=== PATIENT | male | born 1960 | race American Indian/Alaskan Native ===

== ENCOUNTER 2018-06-17 11:33 | Inpatient (IN) | payer MEDICAID ==
--- NOTE | 2018-06-17 12:30 | ED PDOC ---
HPI: Trauma/Fall - HPI Time Seen by Provider: 06/17/18 11:37 Chief Complaint (Nursing): Trauma Chief Complaint (Provider): Trauma History Per: Patient, Other ([facility]) History/Exam Limitations: no limitations Additional Complaint(s): 57 years old male transferred from [facility] for surgery with Dr. Moy. Patient had right hip prosthesis placed by Dr. Moy 1 month ago. Patient fell out of bed today with dislocation and wound dehiscence. He was ini tiarenardy worked up by MD Sukhdev Ba and ALEKSANDRA Chowdhury at [facility] and Dr. Moy preferred to have patient transferred here for the operation. Patient is now in the ER, wound covered with bandage to control bleeding. He rates pain as 7 out of 10. PMD: Rafael Patel Past Medical History Reviewed: Historical Data, Nursing Documentation, Vital Signs Vital Signs: Last Vital Signs Temp 97.8 F 06/17/18 11:42 Pulse 84 06/17/18 11:42 Resp 18 06/17/18 11:42 BP 135/87 06/17/18 12:21 Pulse Ox 97 06/17/18 11:42 Primary Care Provider: Tuan Moy III - Medical History PMH: HTN, Hypercholesterolemia - Surgical History Other surgeries: Right hip prosthesis - Family History Family History: States: Unknown Family Hx - Immunization History Hx Tetanus Toxoid Vaccination: No Hx Influenza Vaccination: No Hx Pneumococcal Vaccination: No - Home Medications Home Medications: Ambulatory Orders Medication Instructions Recorded Aspirin [Aspirin EC] 325 mg PO DAILY 05/09/18 Cyclobenzaprine [Flexeril] 10 mg PO DAILY 05/09/18 Metoprolol Tartrate [Lopressor] 50 mg PO Q12 05/09/18 Pantoprazole Sodium [Protonix] 40 mg PO DAILY 05/09/18 amLODIPine [Norvasc] 10 mg PO DAILY 05/09/18 hydroCHLOROthiazide [Hydrodiuril] 25 mg PO DAILY 05/09/18 Ergocalciferol [Drisdol 50,000 1 cap PO Q7D cap 05/18/18 Intl Units Cap] Ferrous Sulfate [Feosol] 325 mg PO BID tab 05/18/18 Folic Acid 1 mg PO DAILY tab 05/18/18 Rosuvastatin Calcium [Crestor] 10 mg PO HS tab 05/18/18 SITagliptin [Januvia] 100 mg PO DAILY tab 05/18/18 metFORMIN [glucOPHAGE] 850 mg PO BIDCC tab 05/18/18 Acetaminophen/Oxycodone Hydr 1 tab PO Q6 PRN 06/17/18 [Percocet 10/325 mg Tab] Alprazolam [Xanax] 2 mg PO Q8 PRN 06/17/18 - Allergies Allergies/Adverse Reactions: Allergies Allergy/AdvReac Type Severity Reaction Status Date / Time tomato AdvReac ITCHING Verified 05/14/18 14:08 Review of Systems ROS Statement: Except As Marked, All Systems Reviewed And Found Negative Musculoskeletal: Positive for: Leg Pain (Right hip injnury and pain) Physical Exam - Reviewed Nursing Documentation Reviewed: Yes Vital Signs Reviewed: Yes - Physical Exam Appears: Positive for: No Acute Distress Head Exam: Positive for: ATRAUMATIC, NORMOCEPHALIC Extremity: Positive for: Tenderness (to palpation to right hip), Other (Dressing covering right hip, no leaking) - Laboratory Results Result Diagrams: 06/19/18 05:10 06/19/18 05:10 - ECG O2 Sat by Pulse Oximetry: 97 (RA) Pulse Ox Interpretation: Normal Medical Decision Making Medical Decision Making: Time: 1200 MDM: Dr. Moy has been contacted. --Patient to be admitted under Dr. Larose service, who is covering for Dr. Patel. --Will Contact Dr. Larose for admission. Scribe Attestation: Documented by Marjan Rasmussen, acting as a scribe for Randi Malik MD. Provider Scribe Attestation: All medical record entries made by the Scribe were at my direction and personally dictated by me. I have reviewed the chart and agree that the record accurately reflects my personal performance of the history, physical exam, medical decision making, and the department course for this patient. I have also personally directed, reviewed, and agree with the discharge instructions and disposition. Disposition - Clinical Impression Clinical Impression: Dislocation of hip prosthesis - Disposition Disposition Time: 12:00 Condition: GUARDED
[2018-06-17] MEDS ORDERED: Morphine 4 MG/ML VIAL IVP STA (12:41)
[2018-06-17] MEDS ORDERED: Oxycodone/Acetaminophen 5/325 mg Tab PO PRN (13:00)
[2018-06-17] MEDS ORDERED: Glucagon Recombinant 1 mg Inj IM PRN (13:10)
[2018-06-17] MEDS ORDERED: Dextrose 50% SYRINGE Inj (50 ml) IV PRN (13:10)
[2018-06-17] MEDS ORDERED: Morphine 4 MG/ML VIAL ONE (13:12)
[2018-06-17] MEDS ORDERED: Ergocalciferol 50,000 Intl Units Cap PO SCH (13:15)
[2018-06-17 13:36] LABS: BASO # 0.1 K/uL (0.0-0.2); EOS # 0.2 K/uL (0.0-0.7); EOS % 3.8 % (0.0-4.0); HEMOGLOBIN 7.3 g/dL (12.0-18.0); LYMPH # 1.8 K/uL (1.0-4.3); MEAN CELL VOLUME 79.1 fl (80.0-94.0); MEAN CORPUSCULAR HEMOGLOBIN 25.6 pg (27.0-31.0); MEAN CORPUSCULAR HGB CONC 32.4 g/dL (33.0-37.0); MEAN PLATELET VOLUME 8.1 fl (7.2-11.7); MONO # 0.5 K/uL (0.0-0.8); NEUT # 3.2 K/uL (1.8-7.0); NEUT % 55.2 % (50.0-75.0); RBC 2.87 Mil/uL (4.40-5.90); WHITE BLOOD COUNT 5.8 K/uL (4.8-10.8)
[2018-06-17 13:44] LABS: INR 1.2; PROTHROMBIN TIME 13.1 Seconds (9.8-13.1)
[2018-06-17 13:47] LABS: PARTIAL THROMBOPLASTIN TIME 27.7 Seconds (25.6-37.1)
[2018-06-17 13:50] LABS: ALB/GLOB RATIO 0.9 (1.0-2.1); ALBUMIN 3.1 g/dL (3.5-5.0); ALT/SGPT 23 U/L (21-72); AST/SGOT 33 U/L (17-59); BLOOD UREA NITROGEN 11 mg/dl (9-20); CALCIUM 7.9 mg/dL (8.4-10.2); GFR NON-AFRICAN AMERICAN > 60
[2018-06-17 14:01] LABS: BARBITURATES, UR NEGATIVE (NEGATIVE); BENZODIAZEPINES, UR POSITIVE (NEGATIVE); OPIATES, UR POSITIVE (NEGATIVE); PHENCYCLIDINE, UR NEGATIVE (NEGATIVE)
--- NOTE | 2018-06-17 14:34 | RAD ---
Date of service: 06/17/2018 PROCEDURE: HISTORY: hip dislocation COMPARISON: None TECHNIQUE: AP pelvis and frog's leg view. FINDINGS: Bilateral hip replacements present. The right femoral prostatic component is dislocated superiorly out of the right acetabular component. The right acetabular component appears maintained in the acetabular fossa-there is some mild radiolucency of it and the [place] right acetabular bony anatomy and some diffuse sclerosis and hyperostoses primarily around the superolateral right acetabulum. The 3 screws in the acetabular fossa appear intact. Per the cross-table lateral view of the right hip the right femoral head prostatic component is superiorly dislocated to the right acetabular component. The femoral head static component lines up with the anterior 1/2 of the right acetabular prosthetic component. The right femoral stem is anterior to the acetabular component on these images. IMPRESSION: Six superior dislocation of the right femoral head prostatic component relative to the right acetabular prosthetic component in this patient with a right total hip replacement. Findings are as above. On series 11349, image 2 the most inferior of the right acetabular prostatic component opponents screws appears discontinuous with the right acetabular prosthetic cup.. The trace lucency thin along the right acetabular prosthetic component and the [place] osseous right acetabular fossa may reflect some mild loosening. No comparison available. Associated reactive a prominent sclerotic osseous changes as above no comparison is available. The left femoral head appears grossly maintained in the left acetabular prosthetic component this patient is also status post left total hip replacement. Comments: Study marked for PA review .
--- NOTE | 2018-06-17 14:37 | RAD ---
Date of service: 06/17/2018 PROCEDURE: HISTORY: hip dislocation COMPARISON: None TECHNIQUE: Three views FINDINGS: The right femoral head prosthetic component this patient with a total right hip prosthesis is superiorly displaced and also projects along the anterior 1/2 level (however cephalad to it) of the right acetabular prosthetic component. The right acetabular prosthetic component is in the right acetabular [place] fossa-there is some lucency around it which may reflect some loosening. No comparisons available is also some acetabular sclerosis. At 1 of the 3 right acetabular screws appears discontinuous on the right hip x-ray views that accompany the study is well compatible with its fracture-its chronicity is unknown. The distal right femoral stem appears well seated in the intramedullary cavity. Osteoarthrosis and degenerative changes are noted in the right knee. Subcutaneous reticulated edema present. IMPRESSION: Superior right hip dislocation of the right femoral head prostatic component from the right acetabular components patient with a total right hip prosthesis. Other findings as above. Probable trace flake faint ossific fracture fragments along the lesser trochanter. Other findings as above.
--- NOTE | 2018-06-17 14:41 | RAD ---
Date of service: 06/17/2018 PROCEDURE: CHEST RADIOGRAPH, 1 VIEW HISTORY: pre op COMPARISON: None available. FINDINGS: LUNGS: Clear. PLEURA: No pneumothorax or pleural fluid seen. CARDIOVASCULAR: Atherosclerotic calcifications identified primarily aortic arch. No radiographic findings to suggest acute or significant cardiovascular disease. OSSEOUS STRUCTURES: No significant abnormalities. VISUALIZED UPPER ABDOMEN: Normal. OTHER FINDINGS: None. IMPRESSION: No active disease.
--- NOTE | 2018-06-17 16:00 | CP.PCM.CON ---
History of Present Illness - History of Present Illness History of Present Illness: Orthopedic consult: Dr. Moy Patient is a 57 y/o male well known to Dr. Moy's practice, who presents to the [facility] ER with c/o severe R hip pain. Patient had a R revision YO due to fractured hip prosthesis performed at [facility] on 05/14/18. [facility]. Yesterday, he presented to Dr. Moy for staple removal without any issues. This morning he reports falling out of his bed onto his right hip, experiencing severe pain and bleeding from the incision site. He was taken to [facility] for emergent evaluation and was transferred to [facility] to be treated by Dr. Moy. The pain is controlled and he denies any radiation of pain/numbness/tingling. He currently denies CP/SOB/N/V/D/fever/dysuria/melena. PMH: HTN, DMII PSH: bilateral YO, R revision YO meds: as per med rec allergy: tomato SH: 1 ppd tobacco, denies ETOH, urine tox + for opiates and benzo Review of Systems - Review of Systems All systems: reviewed and no additional remarkable complaints except Review of Systems: as per HPI Past Patient History - Infectious Disease Hx of Infectious Diseases: None - Past Medical History & Family History Past Medical History?: Yes Past Family History: Reviewed and not pertinent - Past Social History Smoking Status: Heavy Smoker > 10 Cigarettes Daily - CARDIAC Hx Hypercholesterolemia: Yes Hx Hypertension: Yes - ENDOCRINE/METABOLIC Other/Comment: Borderline Diabetes - MUSCULOSKELETAL/RHEUMATOLOGICAL Hx Falls: Yes Other/Comment: Erlin. Foot/Toes Bunions - PSYCHIATRIC Hx Substance Use: No - SURGICAL HISTORY Hx Surgeries: Yes Hx Orthopedic Surgery: Yes (bilateral hip surgery) Other/Comment: Right hip surgery 04/23/2018 - ANESTHESIA Hx Anesthesia: Yes Hx Anesthesia Reactions: No Hx Malignant Hyperthermia: No Meds Allergies/Adverse Reactions: Allergies Allergy/AdvReac Type Severity Reaction Status Date / Time tomato AdvReac ITCHING Verified 05/14/18 14:08 - Medications Medications: Current Medications Amlodipine Besylate (Norvasc) 10 mg PO DAILY AYAD Atorvastatin Calcium (Lipitor) 20 mg PO HS AYAD Dextrose (Dextrose 50% Inj) 0 ml IV STAT PRN; Protocol PRN Reason: Hypoglycemia Protocol Dextrose (Glutose 15) 0 gm PO ONCE PRN; Protocol PRN Reason: Hypoglycemia Protocol Docusate Sodium (Colace) 100 mg PO BID AYAD Ergocalciferol (Drisdol 50,000 Intl Units Cap) 1 cap PO Q7D AYAD Ferrous Sulfate (Feosol) 325 mg PO BID AYAD Folic Acid (Folic Acid) 1 mg PO DAILY AYAD Glucagon (Glucagen Diagnostic Kit) 0 mg IM STAT PRN; Protocol PRN Reason: Hypoglycemia Protocol Hydrochlorothiazide (Hydrodiuril) 25 mg PO DAILY AYAD Hydromorphone HCl (Dilaudid) 0.5 mg IVP Q4 PRN PRN Reason: Pain, severe (8-10) Sodium Chloride (Sodium Chloride 0.9%) 1,000 mls @ 100 mls/hr IV .Q10H AYAD Metformin HCl (Glucophage) 850 mg PO BID AYAD Metoprolol Tartrate (Lopressor) 50 mg PO Q12 AYAD Oxycodone/Acetaminophen (Percocet 5/325 Mg Tab) 1 tab PO Q4H PRN PRN Reason: Pain, moderate (4-7) Stop: 06/20/18 13:01 Pantoprazole Sodium (Protonix Ec Tab) 40 mg PO DAILY AYAD Sitagliptin Phosphate (Januvia) 100 mg PO DAILY AYAD Physical Exam - Constitutional Appears: Well, No Acute Distress - Head Exam Head Exam: ATRAUMATIC, NORMOCEPHALIC - Eye Exam Eye Exam: EOMI, Normal appearance - ENT Exam ENT Exam: Mucous Membranes Moist - Respiratory Exam Respiratory Exam: NORMAL BREATHING PATTERN - Extremities Exam Additional comments: RLE: moderate thigh swelling no erythema mid lateral thigh incision with dehiscence at mid wound with exposed muscle diffuse lateral and groin tenderness sensation intact SP/DP/TN motor intact EHL/FHL/TA/G pedal pulse intact calves soft NT b/l - Neurological Exam Neurological exam: Alert, Oriented x3 - Psychiatric Exam Psychiatric exam: Normal Affect, Normal Mood - Skin Skin Exam: Normal Color, Warm Results - Vital Signs Recent Vital Signs: Last Vital Signs Temp 97.8 F 06/17/18 11:42 Pulse 84 06/17/18 11:42 Resp 18 06/17/18 11:42 BP 135/87 06/17/18 12:21 Pulse Ox 97 06/17/18 12:46 - Labs Result Diagrams: 06/17/18 13:20 06/17/18 13:20 Labs: Laboratory Results - last 24 hr 06/17/18 06/17/18 06/17/18 13:20 13:20 13:20 WBC 5.8 RBC 2.87 L Hgb 7.3 L Hct 22.7 L MCV 79.1 L MCH 25.6 L MCHC 32.4 L RDW 15.0 H Plt Count 196 MPV 8.1 Neut % (Auto) 55.2 Lymph % (Auto) 31.0 [place] % (Auto) 9.0 Eos % (Auto) 3.8 Baso % (Auto) 1.0 Neut # (Auto) 3.2 Lymph # (Auto) 1.8 [place] # (Auto) 0.5 Eos # (Auto) 0.2 Baso # (Auto) 0.1 PT 13.1 INR 1.2 APTT 27.7 Sodium 137 Potassium 3.7 Chloride 100 Carbon Dioxide 31 H Anion Gap 10 BUN 11 Creatinine 0.6 L Est GFR ( Amer) > 60 Est GFR (Non-Af Amer) > 60 Random Glucose 114 H Calcium 7.9 L Total Bilirubin 0.3 AST 33 ALT 23 Alkaline Phosphatase 73 Total Protein 6.4 Albumin 3.1 L Globulin 3.3 Albumin/Globulin Ratio 0.9 L Urine Opiates Screen Urine Methadone Screen Ur Barbiturates Screen Ur Phencyclidine Scrn Ur Amphetamines Screen U Benzodiazepines Scrn U Oth Cocaine Metabols U Cannabinoids Screen 06/17/18 13:20 WBC RBC Hgb Hct MCV MCH MCHC RDW Plt Count MPV Neut % (Auto) Lymph % (Auto) [place] % (Auto) Eos % (Auto) Baso % (Auto) Neut # (Auto) Lymph # (Auto) [place] # (Auto) Eos # (Auto) Baso # (Auto) PT INR APTT Sodium Potassium Chloride Carbon Dioxide Anion Gap BUN Creatinine Est GFR ( Amer) Est GFR (Non-Af Amer) Random Glucose Calcium Total Bilirubin AST ALT Alkaline Phosphatase Total Protein Albumin Globulin Albumin/Globulin Ratio Urine Opiates Screen Positive H Urine Methadone Screen Negative Ur Barbiturates Screen Negative Ur Phencyclidine Scrn Negative Ur Amphetamines Screen Negative U Benzodiazepines Scrn Positive U Oth Cocaine Metabols Negative U Cannabinoids Screen Negative - Impressions Impression: Accession No. : [id number] Patient Name / ID : FLORENCE ORTEGA / [id number] Exam Date : 06/17/2018 13:12:26 ( Approved ) Study Comment : Sex / Age : M / Creator : Ann Marie Bunn Dictator : Ann Marie Bunn Bumper Operator : Phone Manager : Ann Marie Bunn Approver2 : Report Date : 06/17/2018 14:34:08 My Comment : Date of service: 06/17/2018 PROCEDURE: HISTORY: hip dislocation COMPARISON: None TECHNIQUE: Three views FINDINGS: The right femoral head prosthetic component this patient with a total right hip prosthesis is superiorly displaced and also projects along the anterior 1/2 level (however cephalad to it) of the right acetabular prosthetic component. The right acetabular prosthetic component is in the right acetabular [place] fossa-there is some lucency around it which may reflect some loosening. No comparisons available is also some acetabular sclerosis. At 1 of the 3 right a cetabular screws appears discontinuous on the right hip x-ray views that accompany the study is well compatible with its fracture-its chronicity is unknown. The distal right femoral stem appears well seated in the intramedullary cavity. Osteoarthrosis and degenerative changes are noted in the right knee. Subcutaneous reticulated edema present. IMPRESSION: Superior right hip dislocation of the right femoral head prostatic component from the right acetabular components patient with a total right hip prosthesis. Other findings as above. Probable trace flake faint ossific fracture fragments along the lesser trochanter. Other findings as above. Accession No. : [id number] Patient Name / ID : FLORENCE ORTEGA / [id number] Exam Date : 06/17/2018 13:12:26 ( Approved ) Study Comment : Sex / Age : M / Creator : Ann Marie Bunn Dictator : Ann Marie Bunn Bumper Operator : Phone Manager : Ann Marie Bunn Approver2 : Report Date : 06/17/2018 14:30:37 My Comment : Date of service: 06/17/2018 PROCEDURE: HISTORY: hip dislocation COMPARISON: None TECHNIQUE: AP pelvis and frog's leg view. FINDINGS: Bilateral hip replacements present. The right femoral prostatic component is dislocated superiorly out of the right acetabular component. The right acetabular component appears maintained in the acetabular fossa-there is some mild radiolucency of it and the lum[place] right acetabular bony anatomy and some diffuse sclerosis and hyperostoses primarily around the superolateral right acetabulum. The 3 screws in the acetabular fossa appear intact. Per the cross-table lateral view of the right hip the right femoral head prostatic component is superiorly dislocated to the right acetabular component. The femoral head static component lines up with the anterior 1/2 of the right acetabular prosthetic component. The right femoral stem is anterior to the a cetabular component on these images. IMPRESSION: Six superior dislocation of the right femoral head prostatic component relative to the right acetabular prosthetic component in this patient with a right total hip replacement. Findings are as above. On series 60867, image 2 the most inferior of the right acetabular prostatic component opponents screws appears discontinuous with the right acetabular prosthetic cup.. The trace lucency thin along the right acetabular prosthetic component and the lum[place] osseous right acetabular fossa may reflect some mild loosening. No comparison available. Associated reactive a prominent sclerotic osseous changes as above no comparison is available. The left femoral head appears grossly maintained in the left acetabular prosthetic component this patient is also status post left total hip replacement. Comments: Study marked for PA review . Assessment & Plan (1) Dislocation of hip prosthesis Assessment and Plan: -Dr. Moy has seen, examined the patient and reviewed his imaging. The plan is to perform a revision R YO tomorrow AM. -Transfuse 3 units PRBC's due to severe anemia -NPO pMN -Dressings applied -bedrest, NWB RLE -pain control -d/w Dr. Moy who agrees with above Status: Acute - Date & Time Date: 06/17/18 Time: 14:00
--- NOTE | 2018-06-17 18:42 | US ---
Date of service: 06/17/2018 PROCEDURE: Bilateral lower extremity venous duplex Doppler. HISTORY: leg swelling s/p hip transplant/dislocation COMPARISON: None available. TECHNIQUE: Bilateral common femoral, superficial femoral, popliteal and posterior tibial veins were evaluated. Flow was assessed with color Doppler, compressibility, assessment of phasic flow and augmentation response. FINDINGS: COMMON FEMORAL VEIN: Right CFV: Unremarkable. Left CFV: Unremarkable. SUPERFICIAL FEMORAL VEIN: Right SFV: Unremarkable. Left SFV: Unremarkable. POPLITEAL VEIN: Right Popliteal: Unremarkable. Left Popliteal: Unremarkable. POSTERIOR TIBIAL VEIN: Right PTV: Unremarkable. Left PTV: Unremarkable. OTHER FINDINGS: Morphologically, unremarkable lymph node(s) right inguinal region. IMPRESSION: No evidence of deep venous thrombosis.
[2018-06-17] MEDS ORDERED: Insulin Detemir 100 Units/ml Inj SC SCH (22:00)
[2018-06-17] MEDS: Sodium Chloride 0.9% 1,000 ML IV SCH (22:17)
[2018-06-17] MEDS: Insulin Regular 100 units/ml SC SCH (22:51)
--- NOTE | 2018-06-18 03:13 | HP ---
HISTORY OF PRESENT ILLNESS: This is a 57-year-old male with history of multiple medical problems who recently had revision of right hip prosthesis [address] Moy. The patient was discharged from rehabilitation about 1 week prior to this admission. 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 The patient was brought to emergency room and evaluated, and the femur x-ray was done and it showed superior right hip dislocation of the right femoral head prosthetic component from the right acetabular components. Probable trace ossific fracture fragments along the lesser trochanter. Orthopedic consult was called, and the patient was admitted for further management. Other review of system is negative. ALLERGIES: POSITIVE FOR TOMATO. MEDICATIONS: Reviewed as per MAR and ordered. SOCIAL HISTORY: Patient is a smoker for more than 40 years. Denied EtOH, or substance abuse. FAMILY HISTORY: Noncontributory. PAST MEDICAL HISTORY: Type 2 diabetes mellitus, hypertension. FAMILY HISTORY: Noncontributory. PHYSICAL EXAMINATION: GENERAL: The patient is in bed, not in any cardiopulmonary distress at the time of this examination. VITAL SIGNS: Blood pressure 146/70, temperature 98.5, respiratory rate 17, and pulse 75. HEENT: Pupils equal and reactive to light. Normal-appearing mucosa of the conjunctivae, oropharynx, and nasal membrane mucosa. NECK: Supple. No JVD. No carotid bruit. No lymph node. No thyromegaly. CHEST AND LUNGS: Bilateral symmetrical expansion. Good air exchange. No rales, no rhonchi. CARDIOVASCULAR SYSTEM: PMI not localized. S1, S2. No additional sounds. ABDOMEN: Normoactive bowel sounds. No tenderness, no organomegaly. No masses. EXTREMITIES: No cyanosis, no clubbing. There is edema of the right lower extremity compared to the left. CENTRAL NERVOUS SYSTEM: Alert, awake, oriented x2; and no neurological deficit could be appreciated. ASSESSMENT: 1. Fall with dislocation of the right hip prosthesis, and dehiscence of the wound. 2. Anemia, multifactorial. 3. Hypertension. 4. Type 2 diabetes mellitus. PLAN: We will do venous Doppler of both lower extremities. We have also ordered to transfuse the patient 2 units of packed RBCs and resume the patient's medications. Accu-Cheks with insulin coverage. The patient has a moderate risk to high risk for any surgical procedure given his extensive history of smoking with underlying hypertension, diabetes, and morbid obesity. Surgery is needed as the patient cannot walk. Discussed with Dr. Moy. [facility] MD Thuan
[2018-06-18 05:05] LABS: SQUAMOUS EPITHIAL < 1 /hpf (0-5); URINE BILIRUBIN NEGATIVE (NEGATIVE); URINE BLOOD NEGATIVE (NEGATIVE); URINE CLARITY SLIGHTY-CLOUDY (Clear); URINE COLOR YELLOW (YELLOW); URINE GLUCOSE (UA) NEG (NEGATIVE); URINE LEUKOCYTE ESTERASE NEG Leu/uL (Negative); URINE PROTEIN 30 mg/dL (NEGATIVE); URINE UROBILINOGEN 0.2-1.0 mg/dL (0.2-1.0)
[2018-06-18] MEDS: Insulin Regular 100 units/ml SC SCH ×2 (06:56→21:20)
[2018-06-18] MEDS ORDERED: EPINEPHrine 1 mg/ml (1:1000) Inj ONE ×2 (07:14→07:18)
[2018-06-18] MEDS ORDERED: Bacitracin Ointment 30 GM TUBE ONE (07:14)
[2018-06-18] MEDS ORDERED: Absorbable Gelatin Sponge Size 12-7 ONE (07:14)
[2018-06-18] MEDS ORDERED: Thrombin Topical 5,000 Int Units Spray Kit ONE (07:15)
[2018-06-18] MEDS ORDERED: Succinylcholine Chloride 20 mg/ml Syr (5 ml) IV ONE (07:34)
[2018-06-18] MEDS ORDERED: Rocuronium 10 mg/ml (5 ml) ONE ×4 (07:34→10:36)
[2018-06-18] MEDS ORDERED: Propofol 10 mg/ml Inj (20 ML) ONE (07:34)
[2018-06-18] MEDS ORDERED: Phenylephrine 10 mg/ml Inj ONE (07:36)
[2018-06-18] MEDS ORDERED: Morphine 5 mg/10 ml preservative-free Inj(Duramorph) ONE (07:41)
[2018-06-18 08:15] LABS: BASO % 0.2 % (0.0-2.0); EOS # 0.2 K/uL (0.0-0.7); EOS % 2.5 % (0.0-4.0); LYMPH # 1.6 K/uL (1.0-4.3); LYMPH % 21.1 % (20.0-40.0); MEAN CELL VOLUME 81.1 fl (80.0-94.0); MEAN CORPUSCULAR HEMOGLOBIN 26.8 pg (27.0-31.0); MEAN CORPUSCULAR HGB CONC 33.1 g/dL (33.0-37.0); MEAN PLATELET VOLUME 7.9 fl (7.2-11.7); MONO # 0.6 K/uL (0.0-0.8); MONO % 8.1 % (0.0-10.0); NEUT # 5.1 K/uL (1.8-7.0); NEUT % 68.1 % (50.0-75.0); NRBC % 0.1 % (0.0-0.0); RBC 4.01 Mil/uL (4.40-5.90); WHITE BLOOD COUNT 7.5 K/uL (4.8-10.8)
[2018-06-18 08:18] LABS: HEMOGLOBIN 10.8 g/dL (12.0-18.0)
[2018-06-18] MEDS ORDERED: Sodium Chloride 0.9% 1,000 ML IV ONE ×2 (08:19)
[2018-06-18] MEDS ORDERED: Midazolam 2 MG/2 ML VIAL ONE (08:21)
[2018-06-18] MEDS ORDERED: Lactated Ringer's 1,000 ML IV ONE ×4 (08:30→13:00)
[2018-06-18] MEDS ORDERED: EPINEPHrine 1 mg/ml (1:1000) Inj IV ONE (08:30)
[2018-06-18] MEDS ORDERED: Dexamethasone 4 mg/1 ml ONE (09:41)
[2018-06-18] MEDS ORDERED: Sodium Chloride 0.9% 250 ML IV ONE (11:30)
--- NOTE | 2018-06-18 11:30 | CARD ---
APPROVED REPORT Date of service: 06/17/2018 EKG Measurement Heart [id number] <Conclusion> Normal sinus rhythm Normal ECG
[2018-06-18] MEDS ORDERED: Sevoflurane - Inhalation Anesthetic Liq (250 ml) ONE (12:13)
[2018-06-18] MEDS ORDERED: Calcium Chloride 1000 mg/10 ml Syringe ONE (12:44)
[2018-06-18] MEDS ORDERED: Neostigmine 1:1000 (1 mg/ml) Inj ONE ×2 (13:11→13:53)
[2018-06-18] MEDS ORDERED: Oxycodone/Acetaminophen 5/325 mg Tab PO PRN (13:52)
--- NOTE | 2018-06-18 14:45 | PCM.SURG1 ---
Surgeon's Initial Post Op Note - Surgeon's Notes Surgeon: Farzaneh Director Employee Safety And Health: AMILCAR Alexander Type of Anesthesia: General Endo, Spinal Anesthesia Administered By: DR Robles Pre-Operative Diagnosis: Dislocated Right total hip replacement. wound dehiscience Operative Findings: dislocated Right total hip replacement. wound dehiscience. hematoma R hip Post-Operative Diagnosis: as above Operation Performed: Revision Right total hip replacment (constrained). release iliopsoas tendon. arthrotomy/excision scar. autograft bone graft to aceta bulum. hardware removal -deep. computer navigation Specimen/Specimens Removed: acetabuklar componeent. screws. foreign bodies ( suture) Estimated Blood Loss: EBL {In ML}: 500 (time in room 8:19/naetshesia indcution time 8:19) Drains Used: Hemovac Post-Op Condition: Fair Date of Surgery/Procedure: 06/18/18 Time of Surgery/Procedure: 09:45
[2018-06-18] MEDS: HYDROmorphone 0.5 mg/0.5 ml ISec IVP PRN ×2 (15:02→15:20)
--- NOTE | 2018-06-18 17:48 | RAD ---
PROCEDURE: Right Hip Radiographs. HISTORY: s/p R revision YO COMPARISON: 06/17/2018 TECHNIQUE: 2 views obtained. FINDINGS: BONES: Pelvic ring is intact. There is no acute displaced fracture or bone destruction. Bone alignment is normal. JOINTS: Status post revision total hip arthroplasty. SOFT TISSUES: Expected postoperative changes in the right periarticular soft tissues. A surgical drain is identified. OTHER FINDINGS: None. IMPRESSION: Status post revision arthroplasty in the right hip, no acute complications.
--- NOTE | 2018-06-18 23:40 | PN ---
DATE: 06/18/2018 SUBJECTIVE: The patient underwent revision of the right hip arthroplasty with wound drainage and cleaning. PHYSICAL EXAMINATION: VITAL SIGNS: Blood pressure 158/90, temperature 97.9, respiratory rate 18, pulse 75. HEENT: Pupils are equal and reactive to light. Normal-appearing mucosa of the conjunctivae. NECK: Supple. No JVD. No carotid bruit. No lymph node. No thyromegaly. CHEST AND LUNGS: Bilateral symmetrical expansion. Good air exchange. No rales. No rhonchi. CARDIOVASCULAR SYSTEM: PMI not localized. S1, S2. No additional sounds. ABDOMEN: Normoactive bowel sounds. No tenderness. No organomegaly. No masses. EXTREMITIES: Right thigh is surgically dressed. CENTRAL NERVOUS SYSTEM: The patient is lethargic postoperative. ASSESSMENT: 1. Status post fall with right hip prosthesis, arthroplasty and dehiscence of the wound. I discussed with Dr. Moy. The patient underwent revision of the right hip arthroplasty and debridement of the wound. 2. Hypertension. 3. Type 2 diabetes mellitus. 4. Morbid obesity. 5. Smoker. PLAN: Continue current IV antibiotics, DVT prophylaxis. Follow orthopedic recommendations. Leo Larose MD
[2018-06-19] MEDS: Lactated Ringer's 1,000 ML IV SCH ×4 (01:10→20:43)
[2018-06-19 05:39] LABS: HEMOGLOBIN 10.4 g/dL (12.0-18.0); MEAN CELL VOLUME 82.9 fl (80.0-94.0); MEAN CORPUSCULAR HGB CONC 33.8 g/dL (33.0-37.0); RBC 3.71 Mil/uL (4.40-5.90); RED CELL DISTRIBUTION WIDTH 15.9 % (11.5-14.5); WHITE BLOOD COUNT 9.9 K/uL (4.8-10.8)
[2018-06-19 05:55] LABS: BLOOD UREA NITROGEN 11 mg/dl (9-20); CALCIUM 7.7 mg/dL (8.4-10.2); GFR NON-AFRICAN AMERICAN > 60
[2018-06-19] MEDS: Insulin Regular 100 units/ml SC SCH ×5 (06:56→22:12)
[2018-06-19] MEDS: Sodium Chloride 0.9% 1,000 ML IV SCH ×4 (09:53→15:25)
[2018-06-19] MEDS: Pantoprazole 40 mg EC Tab PO SCH ×2 (09:54)
--- NOTE | 2018-06-19 11:48 | OP ---
PROCEDURE DATE: 06/18/2018 TIME IN THE ROOM: 08:19. ANESTHESIA INDUCTION TIME: 08:19. TIME OF SURGERY: 09:45 PREOPERATIVE DIAGNOSES: 1. Dislocated right total hip replacement. 2. Wound dehiscence. OPERATIVE FINDINGS: 1. Dislocated right total hip replacement. 2. Probable loosening of the acetabular component in the fall and dislocation. 3. Wound dehiscence in the fall and dislocation. 4. Hematoma, right hip. POSTOPERATIVE DIAGNOSES: As above. OPERATIONS PERFORMED: 1. Revision right total hip replacement to a constrained hip replacement, both components. 2. Release of iliopsoas tendon. 3. Arthrotomy excision of scar. 4. Autograft bone graft to the acetabulum. 5. Hardware removal, deep. 6. Computer navigation. SURGEON: Tuan Moy MD ADMINISTRATIVE ASSISTANT: Meenakshi Cohen, certified registered nursing payroll human resources assistant. SECOND SPORTSPERSONS: Dolores Worthington PA-C THIRD SPORTSPERSONS: Levy Smith PA-C TYPE OF ANESTHESIA: Spinal and general. ANESTHESIA ADMINISTERED BY: Jonnie Sutherland MD SPECIMENS REMOVED: Acetabular component, screws, foreign bodies. BLOOD LOSS: 500 mL. DRAINS USED: Two Hemovac drains. POSTOPERATIVE CONDITION: Stable. OPERATIVE INDICATION: Angel Back is a 57-year-old gentleman who under unclear circumstances sustained a fall. The patient is a known substance abuser. The patient fell dislocating his hip. Presented to [facility]. The patient is transferred to [facility] for definitive management. Informed consent was obtained both from the patient and his . Pros, cons, risks and benefits were discussed at length. OPERATIVE PROCEDURE: After having obtained informed consent, after having identified side, site and procedure and a critical pause/time-out after the satisfactory induction of the anesthetic, the patient identified as Angel Back under direct lateral decubitus, the right lower extremity was prepped and free draped in the usual fashion for lower extremity surgery. The initial incision was extended two fingerbreadths proximally and two fingerbreadths distally. An of skin and subcutaneous tissue was accomplished. Skin and subcutaneous tissue dissection was carried down to that layer. The dissection was carried down to the fascia. The fascia was divided. An egress of blood from the wound hematoma was removed and evacuated. The hematoma having been evacuated, excision of skin and subcutaneous tissue and some muscle was accomplished. Wound towels were sewn in. The Charnley retractor was placed and the dislocated hip was identified. At this point in time, thorough irrigation and debridement of and tissue was accomplished. Removal of foreign bodies deep was accomplished, which essentially are deep sutures. The sutures were removed. The posterior capsular flap was developed and the hip was dislocated and brought anteriorly to expose the acetabulum. The acetabulum was exposed. Arthrotomy and excision of excessive scar in the femoral acetabular joint was accomplished. The scar was excised. At this point in time, the margins of the cup were identified. The cup has found to loosen or change in position and the decision at this point in time was made for revision. The head assembly was removed from the femoral stem. The femoral neck was protected with a lap sponge, a C-retractor was placed and at this point the attention was turned to the acetabular component. The polyethylene was removed and the stem was identified. There were found to be broken screws. All screws were removed and at this point in time, the explant was employed to remove the acetabular component. After a combination of the explant and flexible osteotomes, the acetabular component was removed and attention was turned to the bed. Reaming commences and at this point in time, computer navigation was introduced. Two platform screws were placed in the anterior-superior iliac spine. The platform was applied. The camera was adjusted and the registration of the hip commences as well as the leg lengths. This having been accomplished, the cup having been removed, there was found to be evidence of broken screws and on the preoperative x-rays, probable loosening of the cup. This having been accomplished, the retained screw was identified and using a caesar and the screw kit, the retained drill bit was removed. This having been accomplished, the retained drill bit having been removed, the wound was thoroughly irrigated and reaming commences. The reaming commences to a 60 acetabular component, reaming position was checked with computer navigation and computer navigation commences with the cup position approximately 45 degrees with 23 degrees of anteversion. This having been accomplished, the reaming having been accomplished, autograft bone grafting to the acetabulum was accomplished, especially for the cavitation from which the retained screw was removed. Autograft bone graft from the reaming was denuded of any articular cartilage of fibrous tissue that were used to pack the acetabulum. The bone graft was introduced. The cup was introduced. Three sequential screws were introduced with drilling sounding the appropriate size screws were placed. This having been accomplished, the metal shell was well fixed. Verification of position was approximately 46 degrees and 23 degrees of anteversion with 46 degrees of abduction. This was obtained by computer navigation. This having been accomplished, the iliopsoas tendon was released to mobilize the femur. Trialing of the femur was accomplished with a +9 head, the decision for constraint was made because the acetabular component was well fixed. The constraint polyethylene was introduced and at this point in time, the femoral head was employed on the Sarah stem in the appropriate size and in the appropriate orientation. The hip was reduced and found to be stable in all planes. Again, further deep hardware was removed including from the acetabulum. The wound was thoroughly irrigated. The hip was stable in all planes. The leg lengths were equal. Wound was thoroughly irrigated and closures in layers. The capsule with FiberWire followed by #2 Quill, Vicryl and mitra for skin over two 8-inch suction Hemovac drains. Compression dressings applied. The pins were removed from the anterior-superior iliac spine and closures with interrupted Vicryl and nylon. Compression dressing was applied. Postoperative x-ray reveals acceptable position of the construct. Tuan Moy MD
--- NOTE | 2018-06-19 12:39 | PQF ---
PROVIDER RESPONSE TEXT: Anemia of acute blood loss and iron deficiency. REVIEWER QUERY TEXT: Anemia Type Multifactorial Anemia is documented in the Medical Record. Please specify the cause (includes suspec loretta or probable cause) Such as: -- Due to acute blood loss -- Due to chronic blood loss -- Due to iron deficiency -- Due to postoperative blood loss -- Due to chronic disease -- Other, please specify H/H:7.3/22.7->10.8/32.5 H and P includes: dxs. Anemia, multifactorial, Fall with dislocation of the right hip prosthesis, and dehiscence of the wound. 06/17 Ortho note includes: Transfuse 3 units PRBC's due to severe anemia -folic acid, ferrous sulfate, tranexamic acid IVPB The patient's Clinical Indicators include: -- Query created by: Fanny Hopkins on 06/18/2018 1:43 PM Electronically signed by: Leo Larose MD 06/19/2018 12:36 PM
[2018-06-19] MEDS: Enoxaparin 40 mg Syringe SC SCH (15:18)
[2018-06-20 06:31] LABS: HEMOGLOBIN 10.6 g/dL (12.0-18.0); MEAN CELL VOLUME 81.2 fl (80.0-94.0); MEAN CORPUSCULAR HEMOGLOBIN 27.5 pg (27.0-31.0); MEAN CORPUSCULAR HGB CONC 33.9 g/dL (33.0-37.0); RBC 3.85 Mil/uL (4.40-5.90); RED CELL DISTRIBUTION WIDTH 16.3 % (11.5-14.5); WHITE BLOOD COUNT 10.7 K/uL (4.8-10.8)
[2018-06-20] MEDS: Insulin Regular 100 units/ml SC SCH ×4 (06:45→22:00)
[2018-06-20] MEDS: Lactated Ringer's 1,000 ML IV SCH (08:21)
[2018-06-20] MEDS: Pantoprazole 40 mg EC Tab PO SCH (08:25)
--- NOTE | 2018-06-20 12:06 | PN ---
DATE: 06/19/2018 SUBJECTIVE: The patient was seen on 06/19/2018. He was not in any cardiopulmonary distress. Postoperative day #1. PHYSICAL EXAMINATION: VITAL SIGNS: Blood pressure 156/88, temperature 99.4, respiratory rate 18, and pulse 72. HEENT: Pupils are equal and reactive to light. Normal-appearing mucosa of the conjunctivae, oropharynx and nasal membrane mucosa. NECK: Supple. No JVD. No carotid bruit. No lymph node. No thyromegaly. CHEST AND LUNGS: Bilateral symmetrical expansion. Good air exchange. No rales. No rhonchi. CARDIOVASCULAR SYSTEM: PMI not localized. S1 and S2. No additional sounds. ABDOMEN: Normoactive bowel sounds. No tenderness, no organomegaly, and no masses. EXTREMITIES: Right thigh surgically dressed. No cyanosis, no clubbing, no edema. CENTRAL NERVOUS SYSTEM: Alert, awake, and oriented x2. No neurological deficit could be appreciated. ASSESSMENT: 1. Status post right hip surgery. 2. Anemia of acute blood loss and iron deficiency. 3. Hypertension. 4. Type 2 diabetes mellitus. PLAN: Continue current medications and DVT prophylaxis. Follow orthopedic recommendations and physical therapy and rehabilitation. Pain management. Leo Larose MD
[2018-06-20] MEDS: Enoxaparin 40 mg Syringe SC SCH (17:16)
[2018-06-21] MEDS: Insulin Regular 100 units/ml SC SCH ×4 (07:10→22:07)
[2018-06-21] MEDS ORDERED: Povidone Iodine Topical 10% Sol ONE (08:27)
--- NOTE | 2018-06-21 08:28 | CP.PCM.PN ---
Subjective - Date & Time of Evaluation Date of Evaluation: 06/21/18 Time of Evaluation: 08:20 - Subjective Subjective: S- pt without post op discomfort at this encounter Objective - Vital Signs/Intake and Output Vital Signs (last 24 hours): Temp Pulse Resp BP Pulse Ox 99.2 F 80 18 160/90 H 98 06/21/18 05:00 06/21/18 05:00 06/21/18 05:00 06/21/18 05:00 06/21/18 05:00 Intake and Output: 06/21/18 06/21/18 06:59 18:59 Intake Total 300 Output Total 850 Balance -550 - Medications Medications: Current Medications Amlodipine Besylate (Norvasc) 10 mg PO DAILY [facility] Last Admin: 06/20/18 08:25 Dose: 10 mg Atorvastatin Calcium (Lipitor) 20 mg PO HS [facility] Last Admin: 06/20/18 21:20 Dose: 20 mg Dextrose (Dextrose 50% Inj) 0 ml IV STAT PRN; Protocol PRN Reason: Hypoglycemia Protocol Dextrose (Glutose 15) 0 gm PO ONCE PRN; Protocol PRN Reason: Hypoglycemia Protocol Docusate Sodium (Colace) 100 mg PO BID [facility] Last Admin: 06/20/18 17:15 Dose: 100 mg Enoxaparin Sodium (Lovenox) 40 mg SC Q24H [facility]; Protocol Last Admin: 06/20/18 17:16 Dose: 40 mg Ergocalciferol (Drisdol 50,000 Intl Units Cap) 1 cap PO Q7D [facility] Last Admin: 06/17/18 17:40 Dose: 1 cap Ferrous Sulfate (Feosol) 325 mg PO BID [facility] Last Admin: 06/20/18 17:15 Dose: 325 mg Folic Acid (Folic Acid) 1 mg PO DAILY [facility] Last Admin: 06/20/18 08:26 Dose: 1 mg Glucagon (Glucagen Diagnostic Kit) 0 mg IM STAT PRN; Protocol PRN Reason: Hypoglycemia Protocol Hydrochlorothiazide (Hydrodiuril) 25 mg PO DAILY [facility] Last Admin: 06/20/18 08:25 Dose: 25 mg Hydromorphone HCl (Dilaudid) 1 mg IVP Q4 PRN PRN Reason: Pain, severe (8-10) Last Admin: 06/21/18 04:46 Dose: 1 mg Hydromorphone HCl (Dilaudid) 0.5 mg IVP Q4 PRN PRN Reason: Pain, moderate (4-7) Insulin Human Regular (Humulin R) 0 units SC ACHS [facility]; Protocol Last Admin: 06/21/18 07:10 Dose: Not Given Metformin HCl (Glucophage) 850 mg PO BID [facility] Last Admin: 06/20/18 17:16 Dose: 850 mg Metoprolol Tartrate (Lopressor) 50 mg PO Q12 [facility] Last Admin: 06/20/18 21:21 Dose: 50 mg Ondansetron HCl (Zofran Inj) 4 mg IVP Q6 PRN PRN Reason: Nausea/Vomiting Last Admin: 06/19/18 17:34 Dose: 4 mg Pantoprazole Sodium (Protonix Ec Tab) 40 mg PO DAILY [facility] Last Admin: 06/20/18 08:25 Dose: 40 mg Sitagliptin Phosphate (Januvia) 100 mg PO DAILY [facility] Last Admin: 06/20/18 08:25 Dose: 100 mg - Labs Labs: 06/20/18 04:59 06/19/18 05:10 PT 13.1 Seconds (9.8-13.1) 06/17/18 13:20 INR 1.2 06/17/18 13:20 APTT 27.7 Seconds (25.6-37.1) 06/17/18 13:20 - Additional Findings Additional findings: Objective systemic- wnl no evdience for thromboembolic disease chest clear to A+ P\\ Musculoskeletal: stance/gait- defrred R HIp wound benign N/V intact no gross deficits no nita tenderness/no HOImans hemovac drainage- scant Assessment and Plan - Assessment and Plan (Free Text) Assessment: A- s/p complex R THR revision P_ orthopedically stable OOB physio [id number] placment
[2018-06-21] MEDS: Sodium Chloride 0.9% 1,000 ML IV SCH (09:10)
[2018-06-21] MEDS: Pantoprazole 40 mg EC Tab PO SCH (09:10)
--- NOTE | 2018-06-21 12:38 | PN ---
DATE: 06/20/2018 SUBJECTIVE: The patient was not in any cardiopulmonary distress. PHYSICAL EXAMINATION: VITAL SIGNS: Blood pressure 162/97, temperature 99.1, respiratory rate 20 and pulse 76. HEENT: Pupils equal, reactive to light. Normal-appearing mucosa of the conjunctivae, oropharynx and nasal membrane mucosa. NECK: Supple. No JVD. No carotid bruit. No lymph node. No thyromegaly. CHEST AND LUNGS: Bilateral symmetrical expansion. Good air exchange. No rales, no rhonchi. CARDIOVASCULAR SYSTEM: PMI not localized. S1, S2. No additional sounds. ABDOMEN: Normoactive bowel sounds. No tenderness, no organomegaly. No masses. EXTREMITIES: No cyanosis, no clubbing, no edema. Right lower extremity is surgically dressed. CENTRAL NERVOUS SYSTEM: Alert, awake, oriented x2. No neurological deficit. ASSESSMENT: Status post right hip surgery, hypertension, type 2 diabetes mellitus, morbid obesity. PLAN: Continue DVT prophylaxis, incentive spirometry, physical therapy, and follow Orthopedic recommendations. [facility] MD Thuan
[2018-06-21] MEDS: Enoxaparin 40 mg Syringe SC SCH (13:13)
[2018-06-22] MEDS: Insulin Regular 100 units/ml SC SCH ×4 (06:36→22:49)
[2018-06-22] MEDS: Pantoprazole 40 mg EC Tab PO SCH (08:20)
[2018-06-22] MEDS: Oxycodone/Acetaminophen 5/325 mg Tab PO PRN ×2 (10:27→21:48)
[2018-06-22] MEDS: Enoxaparin 40 mg Syringe SC SCH (14:14)
--- NOTE | 2018-06-22 14:41 | CP.PCM.PN ---
Subjective - Date & Time of Evaluation Date of Evaluation: 06/22/18 Time of Evaluation: 11:00 - Subjective Subjective: Patient seen and examined OOB to chair comfortable. Pain well controlled. Objective - Vital Signs/Intake and Output Vital Signs (last 24 hours): Temp Pulse Resp BP Pulse Ox 97.2 F L 89 20 93/66 L 95 06/22/18 12:45 06/22/18 12:45 06/22/18 12:45 06/22/18 12:45 06/22/18 12:45 - Medications Medications: Current Medications Amlodipine Besylate (Norvasc) 10 mg PO DAILY [facility] Last Admin: 06/22/18 08:20 Dose: 10 mg Atorvastatin Calcium (Lipitor) 20 mg PO HS [facility] Last Admin: 06/21/18 21:57 Dose: 20 mg Dextrose (Dextrose 50% Inj) 0 ml IV STAT PRN; Protocol PRN Reason: Hypoglycemia Protocol Dextrose (Glutose 15) 0 gm PO ONCE PRN; Protocol PRN Reason: Hypoglycemia Protocol Docusate Sodium (Colace) 100 mg PO BID [facility] Last Admin: 06/22/18 08:20 Dose: 100 mg Enoxaparin Sodium (Lovenox) 40 mg SC Q24H [facility]; Protocol Last Admin: 06/22/18 14:14 Dose: 40 mg Ergocalciferol (Drisdol 50,000 Intl Units Cap) 1 cap PO Q7D [facility] Last Admin: 06/17/18 17:40 Dose: 1 cap Ferrous Sulfate (Feosol) 325 mg PO BID [facility] Last Admin: 06/22/18 08:20 Dose: 325 mg Folic Acid (Folic Acid) 1 mg PO DAILY [facility] Last Admin: 06/22/18 08:21 Dose: 1 mg Glucagon (Glucagen Diagnostic Kit) 0 mg IM STAT PRN; Protocol PRN Reason: Hypoglycemia Protocol Hydrochlorothiazide (Hydrodiuril) 25 mg PO DAILY [facility] Last Admin: 06/22/18 08:21 Dose: 25 mg Insulin Human Regular (Humulin R) 0 units SC ACHS [facility]; Protocol Last Admin: 06/22/18 12:05 Dose: 2 units Metformin HCl (Glucophage) 850 mg PO BID [facility] Last Admin: 06/22/18 08:21 Dose: 850 mg Metoprolol Tartrate (Lopressor) 50 mg PO Q12 [facility] Last Admin: 06/22/18 08:21 Dose: 50 mg Ondansetron HCl (Zofran Inj) 4 mg IVP Q6 PRN PRN Reason: Nausea/Vomiting Last Admin: 06/19/18 17:34 Dose: 4 mg Oxycodone/Acetaminophen (Percocet 5/325 Mg Tab) 1 tab PO Q4 PRN PRN Reason: Pain, moderate (4-7) Stop: 06/25/18 09:13 Last Admin: 06/22/18 10:27 Dose: 1 tab Oxycodone/Acetaminophen (Percocet 5/325 Mg Tab) 2 tab PO Q4 PRN PRN Reason: Pain, severe (8-10) Stop: 06/25/18 09:14 Pantoprazole Sodium (Protonix Ec Tab) 40 mg PO DAILY [facility] Last Admin: 06/22/18 08:20 Dose: 40 mg Sitagliptin Phosphate (Januvia) 100 mg PO DAILY [facility] Last Admin: 06/22/18 08:21 Dose: 100 mg - Labs Labs: 06/20/18 04:59 06/19/18 05:10 PT 13.1 Seconds (9.8-13.1) 06/17/18 13:20 INR 1.2 06/17/18 13:20 APTT 27.7 Seconds (25.6-37.1) 06/17/18 13:20 - Extremities Exam Additional comments: RLE: Dressings CDI mild thigh swelling, improved sensation intact SP/DP/TN motor intact EHL/FHL/TA/G pedal pulse intact calves soft NT b/l Assessment and Plan (1) Dislocation of hip prosthesis Assessment & Plan: POD#4 s/p revision R YO -PT/OT -DVT ppx -orthopedically stable for d/c to TCU, pending insurance auth -d/w Dr. Moy who agrees with above Status: Acute
--- NOTE | 2018-06-23 02:14 | PN ---
DATE: 06/22/2018 SUBJECTIVE: The patient is seen today, 06/22/2018. He is not in any cardiopulmonary distress. The patient is cooperative with physical therapy. PHYSICAL EXAMINATION: VITAL SIGNS: Blood pressure is 100/60, temperature 97.7, respiratory rate 20, and pulse 79. HEENT: Pupils equal, reactive to light. Normal-appearing mucosa of the conjunctivae, oropharynx and nasal membrane mucosa. NECK: Supple. No JVD. No carotid bruit. No lymph node. No thyromegaly. CHEST AND LUNGS: Bilateral symmetrical expansion. Good air exchange. No rales, no rhonchi. CARDIOVASCULAR SYSTEM: PMI not localized. S1, S2. No additional sounds. ABDOMEN: Normoactive bowel sounds. No tenderness, no organomegaly, no masses. EXTREMITIES: No cyanosis, no clubbing, no edema. CENTRAL NERVOUS SYSTEM: Alert, awake, oriented x2. No neurological deficit could be appreciated. ASSESSMENT: 1. Status post right hip prosthetic replacement with wound debridement. 2. Anemia of acute blood loss. 3. Hypertension. 4. Type 2 diabetes mellitus. PLAN: Continue DVT prophylaxis. Continue physical therapy and occupational therapy. Continue Accu-Cheks with insulin coverage as needed. Leo Larose MD
[2018-06-23] MEDS: Insulin Regular 100 units/ml SC SCH ×4 (06:32→21:36)
--- NOTE | 2018-06-23 07:56 | CP.PCM.PN ---
Subjective - Date & Time of Evaluation Date of Evaluation: 06/23/18 Time of Evaluation: 07:30 - Subjective Subjective: Patient seen and examined at bedside comfortable. Pain much improved today. Eager for PT this AM, tolerated PT well yesterday. No new complaints. Objective - Vital Signs/Intake and Output Vital Signs (last 24 hours): Temp Pulse Resp BP Pulse Ox 97.7 F 79 18 119/70 97 06/23/18 01:00 06/23/18 01:00 06/23/18 01:00 06/23/18 01:00 06/23/18 01:00 - Medications Medications: Current Medications Amlodipine Besylate (Norvasc) 10 mg PO DAILY [facility] Last Admin: 06/22/18 08:20 Dose: 10 mg Atorvastatin Calcium (Lipitor) 20 mg PO HS [facility] Last Admin: 06/22/18 21:48 Dose: 20 mg Dextrose (Dextrose 50% Inj) 0 ml IV STAT PRN; Protocol PRN Reason: Hypoglycemia Protocol Dextrose (Glutose 15) 0 gm PO ONCE PRN; Protocol PRN Reason: Hypoglycemia Protocol Docusate Sodium (Colace) 100 mg PO BID [facility] Last Admin: 06/22/18 16:22 Dose: 100 mg Enoxaparin Sodium (Lovenox) 40 mg SC Q24H [facility]; Protocol Last Admin: 06/22/18 14:14 Dose: 40 mg Ergocalciferol (Drisdol 50,000 Intl Units Cap) 1 cap PO Q7D [facility] Last Admin: 06/17/18 17:40 Dose: 1 cap Ferrous Sulfate (Feosol) 325 mg PO BID [facility] Last Admin: 06/22/18 16:23 Dose: 325 mg Folic Acid (Folic Acid) 1 mg PO DAILY [facility] Last Admin: 06/22/18 08:21 Dose: 1 mg Glucagon (Glucagen Diagnostic Kit) 0 mg IM STAT PRN; Protocol PRN Reason: Hypoglycemia Protocol Hydrochlorothiazide (Hydrodiuril) 25 mg PO DAILY [facility] Last Admin: 06/22/18 08:21 Dose: 25 mg Insulin Human Regular (Humulin R) 0 units SC ACHS [facility]; Protocol Last Admin: 06/23/18 06:32 Dose: 2 units Metformin HCl (Glucophage) 850 mg PO BID [facility] Last Admin: 06/22/18 16:22 Dose: 850 mg Metoprolol Tartrate (Lopressor) 50 mg PO Q12 [facility] Last Admin: 06/22/18 21:47 Dose: 50 mg Ondansetron HCl (Zofran Inj) 4 mg IVP Q6 PRN PRN Reason: Nausea/Vomiting Last Admin: 06/19/18 17:34 Dose: 4 mg Oxycodone/Acetaminophen (Percocet 5/325 Mg Tab) 1 tab PO Q4 PRN PRN Reason: Pain, moderate (4-7) Stop: 06/25/18 09:13 Last Admin: 06/22/18 10:27 Dose: 1 tab Oxycodone/Acetaminophen (Percocet 5/325 Mg Tab) 2 tab PO Q4 PRN PRN Reason: Pain, severe (8-10) Stop: 06/25/18 09:14 Last Admin: 06/22/18 21:48 Dose: 2 tab Pantoprazole Sodium (Protonix Ec Tab) 40 mg PO DAILY [facility] Last Admin: 06/22/18 08:20 Dose: 40 mg Sitagliptin Phosphate (Januvia) 100 mg PO DAILY [facility] Last Admin: 06/22/18 08:21 Dose: 100 mg - Labs Labs: 06/20/18 04:59 06/19/18 05:10 PT 13.1 Seconds (9.8-13.1) 06/17/18 13:20 INR 1.2 06/17/18 13:20 APTT 27.7 Seconds (25.6-37.1) 06/17/18 13:20 - Extremities Exam Additional comments: RLE: Dressings CDI incsion CDI with mitra mild thigh swelling, improved sensation intact SP/DP/TN motor intact EHL/FHL/TA/G pedal pulse intact calves soft NT b/l Assessment and Plan (1) Dislocation of hip prosthesis Assessment & Plan: POD#5 s/p revision R YO -dressings changed -PT/OT -DVT ppx -orthopedically stable for d/c today -d/w Dr. Moy who agrees with above Status: Acute
[2018-06-23] MEDS: Oxycodone/Acetaminophen 5/325 mg Tab PO PRN ×2 (09:05→21:27)
[2018-06-23] MEDS: Pantoprazole 40 mg EC Tab PO SCH (09:06)
[2018-06-23] MEDS: Enoxaparin 40 mg Syringe SC SCH (13:32)
[2018-06-23 15:50] VITALS: RESP 20
[2018-06-23 20:08] VITALS: BP 111/75; PULSE 86; TEMP 98.2; O2SAT 96
--- NOTE | 2018-06-24 05:12 | DS ---
REASON FOR ADMISSION: This is a 57-year-old -Citizen Of [place] male. The patient was admitted after a fall and dislocation of a right hip prosthesis and dehiscence of the wound with bleeding. COURSE OF HOSPITALIZATION: The patient was admitted to telemetry floor, and he was taken to operating room. The patient had replacement of the prosthesis as well as debridement of the wound. The patient was transfused 3 units of packed RBCs, and hemoglobin came back from 7.3 to 10.8. The patient's postoperative course was uneventful. The patient was started on physical therapy and discharged to transitional care unit to continue physical therapy and occupational therapy and current medications. Follow up with Orthopedic. FINAL DIAGNOSES: Fall with dislocation of right hip prosthesis as well as dehiscence of the wound. Anemia of acute blood loss. Type 2 diabetes mellitus and hypertension. [facility] MD Thuan
== END 2018-06-23 21:40 | DRG 558 ==
LOC: H.ER 11:33 → H.ERHOLD 12:40 → H.MEDSURG1 18:24 → H.TEL 06-18 18:22
PROVIDERS: ADMIT Internal Medicine; ATTEND Internal Medicine
PROC: 30233N1 Transfusion of Nonautologous Red Blood Cells into Peripheral Vein, Percutaneous Approach (ICD-10-PCS; 2018-06-17)
PROC: 0SRA00Z Replacement of Right Hip Joint, Acetabular Surface with Polyethylene Synthetic Substitute, Open Approach (ICD-10-PCS; 2018-06-18)
PROC: 8E0WXBZ Computer Assisted Procedure of Trunk Region (ICD-10-PCS; 2018-06-18)
PROC: 0SPA0JZ Removal of Synthetic Substitute from Right Hip Joint, Acetabular Surface, Open Approach (ICD-10-PCS; principal; 2018-06-18 07:45)
DX: T84.020A Dislocation of internal right hip prosthesis, initial encounter (principal); T81.32XA Disruption of internal operation (surgical) wound, not elsewhere classified, initial encounter; D62 Acute posthemorrhagic anemia; S70.01XA Contusion of right hip, initial encounter; Z96.641 Presence of right artificial hip joint; Y79.2 Prosthetic and other implants, materials and accessory orthopedic devices associated with adverse incidents; E66.01 Morbid (severe) obesity due to excess calories; Z68.37 Body mass index [BMI] 37.0-37.9, adult; E11.9 Type 2 diabetes mellitus without complications; I10 Essential (primary) hypertension; E78.00 Pure hypercholesterolemia, unspecified; F17.210 Nicotine dependence, cigarettes, uncomplicated; W06.XXXA Fall from bed, initial encounter; Z79.84 Long term (current) use of oral hypoglycemic drugs; Y92.003 Bedroom of unspecified non-institutional (private) residence as the place of occurrence of the external cause

== ENCOUNTER 2018-06-23 15:19 | Inpatient (IN) | payer MEDICAID ==
[2018-06-23 22:13] VITALS: BMI 38.5
[2018-06-23] MEDS ORDERED: Dextrose 50% SYRINGE Inj (50 ml) IV PRN (22:36)
[2018-06-23] MEDS ORDERED: Glucagon Recombinant 1 mg Inj IM PRN (22:36)
[2018-06-23] MEDS ORDERED: Patient's Own Med (Acetaminophen/Oxycodone Hydr [Percocet 10/325 Mg Tab] 1 TAB) PO PRN (22:38)
[2018-06-23] MEDS ORDERED: Oxycodone/Acetaminophen 5/325 mg Tab PO PRN (22:40)
[2018-06-23] MEDS: Insulin Regular 100 units/ml SC SCH (23:50)
[2018-06-24 07:08] LABS: BASO % 0.4 % (0.0-2.0); EOS # 0.3 K/uL (0.0-0.7); EOS % 2.7 % (0.0-4.0); HEMOGLOBIN 11.4 g/dL (12.0-18.0); LYMPH # 1.9 K/uL (1.0-4.3); LYMPH % 18.7 % (20.0-40.0); MEAN CELL VOLUME 82.5 fl (80.0-94.0); MEAN CORPUSCULAR HEMOGLOBIN 27.1 pg (27.0-31.0); MEAN CORPUSCULAR HGB CONC 32.9 g/dL (33.0-37.0); MEAN PLATELET VOLUME 7.6 fl (7.2-11.7); MONO # 0.9 K/uL (0.0-0.8); MONO % 8.6 % (0.0-10.0); NEUT # 7.3 K/uL (1.8-7.0); NEUT % 69.6 % (50.0-75.0); NRBC % 0.1 % (0.0-0.0); RBC 4.19 Mil/uL (4.40-5.90); RED CELL DISTRIBUTION WIDTH 16.7 % (11.5-14.5); WHITE BLOOD COUNT 10.4 K/uL (4.8-10.8)
[2018-06-24 07:48] LABS: ALB/GLOB RATIO 1.1 (1.0-2.1); ALBUMIN 3.9 g/dL (3.5-5.0); CALCIUM 8.8 mg/dL (8.4-10.2)
[2018-06-24] MEDS: Pantoprazole 40 mg EC Tab PO SCH (08:23)
[2018-06-24] MEDS: Ergocalciferol 50,000 Intl Units Cap PO SCH (08:23)
[2018-06-24] MEDS: Insulin Regular 100 units/ml SC SCH ×4 (08:25→22:31)
[2018-06-24] MEDS: Aspirin 325 mg EC Tablets PO SCH (08:27)
[2018-06-24] MEDS: Oxycodone/Acetaminophen 5/325 mg Tab PO PRN (09:37)
[2018-06-24] MEDS: Enoxaparin 40 mg Syringe SC SCH (10:27)
--- NOTE | 2018-06-24 11:29 | CP.PCM.PN ---
Subjective - Date & Time of Evaluation Date of Evaluation: 06/24/18 Time of Evaluation: 11:29 - Subjective Subjective: Patient states he had to lie down today because he felt nauseated after PT. He says he had BM yesterday, has been urinating normally, yellow. Denies n/v. Denies CP/SOB/dizziness. Denies palpitations. He says before he was urinating all the time, but now that has slowed. Objective - Vital Signs/Intake and Output Vital Signs (last 24 hours): Temp Pulse Resp BP Pulse Ox 98.1 F 79 18 115/78 100 06/23/18 22:14 06/24/18 08:23 06/23/18 22:32 06/24/18 08:23 06/23/18 22:32 - Medications Medications: Current Medications Alprazolam (Xanax) 2 mg PO Q8 PRN PRN Reason: Anxiety Amlodipine Besylate (Norvasc) 10 mg PO DAILY [facility] Last Admin: 06/24/18 08:23 Dose: 10 mg Aspirin (Ecotrin) 325 mg PO DAILY [facility] Last Admin: 06/24/18 08:27 Dose: 325 mg Atorvastatin Calcium (Lipitor) 20 mg PO [facility] Cyclobenzaprine HCl (Flexeril) 10 mg PO DAILY [facility] Last Admin: 06/24/18 08:24 Dose: 10 mg Dextrose (Dextrose 50% Inj) 0 ml IV STAT PRN; Protocol PRN Reason: Hypoglycemia Protocol Dextrose (Glutose 15) 0 gm PO ONCE PRN; Protocol PRN Reason: Hypoglycemia Protocol Docusate Sodium (Colace) 100 mg PO BID [facility] Last Admin: 06/24/18 08:23 Dose: 100 mg Enoxaparin Sodium (Lovenox) 40 mg SC DAILY [facility]; Protocol Last Admin: 06/24/18 10:27 Dose: 40 mg Ergocalciferol (Drisdol 50,000 Intl Units Cap) 1 cap PO Q7D [facility] Last Admin: 06/24/18 08:23 Dose: 1 cap Ferrous Sulfate (Feosol) 325 mg PO BID [facility] Last Admin: 06/24/18 09:38 Dose: 325 mg Folic Acid (Folic Acid) 1 mg PO DAILY [facility] Last Admin: 06/24/18 08:23 Dose: 1 mg Glucagon (Glucagen Diagnostic Kit) 0 mg IM STAT PRN; Protocol PRN Reason: Hypoglycemia Protocol Hydrochlorothiazide (Hydrodiuril) 25 mg PO DAILY [facility] Last Admin: 06/24/18 08:24 Dose: 25 mg Insulin Human Regular (Humulin R) 0 units SC ACCU-CHECK [facility]; Protocol Last Admin: 06/24/18 08:25 Dose: Not Given Metformin HCl (Glucophage) 850 mg PO BIDWM [facility] Last Admin: 06/24/18 08:24 Dose: 850 mg Metoprolol Tartrate (Lopressor) 50 mg PO Q12 [facility] Last Admin: 06/24/18 08:23 Dose: 50 mg Oxycodone/Acetaminophen (Percocet 5/325 Mg Tab) 1 tab PO Q6 PRN PRN Reason: Pain, moderate (4-7) Stop: 06/26/18 22:41 Oxycodone/Acetaminophen (Percocet 5/325 Mg Tab) 2 tab PO Q6 PRN PRN Reason: Pain, severe (8-10) Stop: 06/26/18 23:26 Last Admin: 06/24/18 09:37 Dose: 2 tab Pantoprazole Sodium (Protonix Ec Tab) 40 mg PO DAILY [facility] Last Admin: 06/24/18 08:23 Dose: 40 mg Sitagliptin Phosphate (Januvia) 100 mg PO DAILY [facility] Last Admin: 06/24/18 08:24 Dose: 100 mg - Labs Labs: 06/24/18 07:00 06/24/18 07:00 - Extremities Exam Additional comments: Right hip: incision clean, dry, intact, no drainage, no erythema. +ROM ankle/toes, sensation intact, +DP/PT pulses calves soft NT neg homans Assessment and Plan (1) Dislocation of hip prosthesis Assessment & Plan: POD#6 s/p right hip revision, I&D, wound closure cont hip precautions VTE proph Cr 1.6, BUN elevated, likely prerenal, significant change since last labs, RN to notify PMD, encourage PO fluids at this time labs in am cont PT/OT d/w Dr. Moy, agrees with above Status: Acute (2) Wound dehiscence, surgical Status: Acute
[2018-06-24] MEDS: Sodium Chloride 0.9% 1,000 ML IV SCH ×2 (13:08→21:37)
--- NOTE | 2018-06-24 13:39 | CP.PCM.CON ---
History of Present Illness - History of Present Illness History of Present Illness: 57 year old male admitted to TCU after right hip revision surgery, now for inpatient rehab Review of Systems - Musculoskeletal Musculoskeletal: Abnormal Gait, Limited Range of Motion, Muscle Weakness Past Patient History - Infectious Disease Hx of Infectious Diseases: None - Past Medical History & Family History Past Medical History?: Yes - Past Social History Smoking Status: Former Smoker - CARDIAC Hx Hypercholesterolemia: Yes Hx Hypertension: Yes - PULMONARY Hx Respiratory Disorders: No - NEUROLOGICAL Hx Neurological Disorder: No - HEENT Hx HEENT Problems: No - RENAL Hx Chronic Kidney Disease: No - ENDOCRINE/METABOLIC Hx Diabetes Mellitus Type 2: Yes - HEMATOLOGICAL/ONCOLOGICAL Hx Blood Disorders: No Hx AIDS: No Hx Human Immunodeficiency Virus (HIV): No - INTEGUMENTARY Hx Dermatological Problems: No - MUSCULOSKELETAL/RHEUMATOLOGICAL Hx Musculoskeletal Disorders: Yes Hx Falls: Yes Other/Comment: Erlin. Foot/Toes Bunions - GASTROINTESTINAL Hx Gastrointestinal Disorders: No - GENITOURINARY/GYNECOLOGICAL Hx Genitourinary Disorders: No - PSYCHIATRIC Hx Psychophysiologic Disorder: No Hx Substance Use: No - SURGICAL HISTORY Hx Surgeries: Yes Hx Orthopedic Surgery: Yes (bilateral hip surgery) Other/Comment: Right hip surgery 04/23/2018 - ANESTHESIA Hx Anesthesia: Yes Hx Anesthesia Reactions: No Hx Malignant Hyperthermia: No Has any member of the family had a problem w/ anesthesia?: No Meds Allergies/Adverse Reactions: Allergies Allergy/AdvReac Type Severity Reaction Status Date / Time tomato AdvReac ITCHING Verified 05/14/18 14:08 - Medications Medications: Current Medications Alprazolam (Xanax) 2 mg PO Q8 PRN PRN Reason: Anxiety Amlodipine Besylate (Norvasc) 10 mg PO DAILY [facility] Last Admin: 06/24/18 08:23 Dose: 10 mg Aspirin (Ecotrin) 325 mg PO DAILY [facility] Last Admin: 06/24/18 08:27 Dose: 325 mg Atorvastatin Calcium (Lipitor) 20 mg PO HS [facility] Cyclobenzaprine HCl (Flexeril) 10 mg PO DAILY [facility] Last Admin: 06/24/18 08:24 Dose: 10 mg Dextrose (Dextrose 50% Inj) 0 ml IV STAT PRN; Protocol PRN Reason: Hypoglycemia Protocol Dextrose (Glutose 15) 0 gm PO ONCE PRN; Protocol PRN Reason: Hypoglycemia Protocol Docusate Sodium (Colace) 100 mg PO BID [facility] Last Admin: 06/24/18 08:23 Dose: 100 mg Enoxaparin Sodium (Lovenox) 40 mg SC DAILY [facility]; Protocol Last Admin: 06/24/18 10:27 Dose: 40 mg Ergocalciferol (Drisdol 50,000 Intl Units Cap) 1 cap PO Q7D [facility] Last Admin: 06/24/18 08:23 Dose: 1 cap Ferrous Sulfate (Feosol) 325 mg PO BID [facility] Last Admin: 06/24/18 09:38 Dose: 325 mg Folic Acid (Folic Acid) 1 mg PO DAILY [facility] Last Admin: 06/24/18 08:23 Dose: 1 mg Glucagon (Glucagen Diagnostic Kit) 0 mg IM STAT PRN; Protocol PRN Reason: Hypoglycemia Protocol Hydrochlorothiazide (Hydrodiuril) 25 mg PO DAILY [facility] Last Admin: 06/24/18 08:24 Dose: 25 mg Sodium Chloride (Sodium Chloride 0.9%) 1,000 mls @ 100 mls/hr IV .Q10H [facility] Stop: 06/25/18 08:14 Last Admin: 06/24/18 13:08 Dose: 100 mls/hr Insulin Human Regular (Humulin R) 0 units SC ACCU-CHECK [facility]; Protocol Last Admin: 06/24/18 12:59 Dose: Not Given Metformin HCl (Glucophage) 850 mg PO BIDWM [facility] Last Admin: 06/24/18 08:24 Dose: 850 mg Metoprolol Tartrate (Lopressor) 50 mg PO Q12 [facility] Last Admin: 06/24/18 08:23 Dose: 50 mg Oxycodone/Acetaminophen (Percocet 5/325 Mg Tab) 1 tab PO Q6 PRN PRN Reason: Pain, moderate (4-7) Stop: 06/26/18 22:41 Oxycodone/Acetaminophen (Percocet 5/325 Mg Tab) 2 tab PO Q6 PRN PRN Reason: Pain, severe (8-10) Stop: 06/26/18 23:26 Last Admin: 06/24/18 09:37 Dose: 2 tab Pantoprazole Sodium (Protonix Ec Tab) 40 mg PO DAILY [facility] Last Admin: 06/24/18 08:23 Dose: 40 mg Sitagliptin Phosphate (Januvia) 100 mg PO DAILY [facility] Last Admin: 06/24/18 08:24 Dose: 100 mg Physical Exam - Constitutional Appears: Well - Head Exam Head Exam: ATRAUMATIC, NORMAL INSPECTION, NORMOCEPHALIC - Eye Exam Eye Exam: EOMI, Normal appearance, PERRL Pupil Exam: NORMAL ACCOMODATION - ENT Exam ENT Exam: Mucous Membranes Moist, Normal Exam - Neck Exam Neck exam: Positive for: Normal Inspection - Respiratory Exam Respiratory Exam: Clear to Auscultation Bilateral, NORMAL BREATHING PATTERN - Cardiovascular Exam Cardiovascular Exam: REGULAR RHYTHM - GI/Abdominal Exam GI & Abdominal Exam: Normal Bowel Sounds - Rectal Exam Rectal Exam: NORMAL INSPECTION - Exam External exam: NORMAL EXTERNAL EXAM - Back Exam Back exam: NORMAL INSPECTION Additional comments: right leg weakness status post hip revision - Neurological Exam Neurological exam: Alert, CN II-XII Intact - Psychiatric Exam Psychiatric exam: Normal Affect, Normal Mood - Skin Skin Exam: Dry, Intact Results - Vital Signs Recent Vital Signs: Last Vital Signs Temp 98.1 F 06/23/18 22:14 Pulse 79 06/24/18 11:30 Resp 18 06/23/18 22:32 BP 115/78 06/24/18 08:23 Pulse Ox 100 06/23/18 22:32 - Labs Result Diagrams: 06/24/18 07:00 06/24/18 07:00 Labs: Laboratory Results - last 24 hr 06/24/18 06/24/18 06/24/18 06:25 07:00 07:00 WBC 10.4 RBC 4.19 L Hgb 11.4 L Hct 34.5 L MCV 82.5 MCH 27.1 MCHC 32.9 L RDW 16.7 H Plt Count 379 D MPV 7.6 Neut % (Auto) 69.6 Lymph % (Auto) 18.7 L Montgomery % (Auto) 8.6 Eos % (Auto) 2.7 Baso % (Auto) 0.4 Neut # (Auto) 7.3 H Lymph # (Auto) 1.9 Montgomery # (Auto) 0.9 H Eos # (Auto) 0.3 Baso # (Auto) 0.0 Sodium 137 Potassium 4.1 Chloride 98 Carbon Dioxide 28 Anion Gap 15 BUN 38 H Creatinine 1.6 H Est GFR ( Amer) 54 Est GFR (Non-Af Amer) 44 POC Glucose (mg/dL) 146 H Random Glucose 142 H Calcium 8.8 Total Bilirubin 0.4 AST 34 ALT 20 L Alkaline Phosphatase 93 Total Protein 7.5 Albumin 3.9 Globulin 3.6 Albumin/Globulin Ratio 1.1 06/24/18 11:28 WBC RBC Hgb Hct MCV MCH MCHC RDW Plt Count MPV Neut % (Auto) Lymph % (Auto) Montgomery % (Auto) Eos % (Auto) Baso % (Auto) Neut # (Auto) Lymph # (Auto) Montgomery # (Auto) Eos # (Auto) Baso # (Auto) Sodium Potassium Chloride Carbon Dioxide Anion Gap BUN Creatinine Est GFR ( Amer) Est GFR (Non-Af Amer) POC Glucose (mg/dL) 130 H Random Glucose Calcium Total Bilirubin AST ALT Alkaline Phosphatase Total Protein Albumin Globulin Albumin/Globulin Ratio Assessment & Plan (1) Broken internal hip prosthesis Assessment and Plan: status post revision of right hip. plan for physical, and occupational therapy, Monitor pain and skin. Status: Acute (2) Diabetes mellitus type 2, uncontrolled Status: Acute (3) Dislocation of hip prosthesis Status: Acute (4) Hip fracture Status: Acute (5) Vitamin D deficiency Status: Acute
[2018-06-24] MEDS ORDERED: Patient's Own Med (Rosuvastatin Calcium [Crestor] 10 MG) PO SCH (22:00)
[2018-06-25] MEDS: Insulin Regular 100 units/ml SC SCH ×3 (06:24→16:41)
--- NOTE | 2018-06-25 07:33 | HP ---
HISTORY OF PRESENT ILLNESS: This is a 57-year-old male who was admitted to transitional care unit after an acute care admission. The patient underwent right hip prosthesis revision surgery with debridement of right hip wound. The patient also had anemia of acute blood loss after which the patient was transfused packed RBCs and hemoglobin came up from 7 to 10. The patient was started on physical therapy and admitted to transitional care unit for deconditioning and further physical therapy and occupational therapy. Other review of systems is negative. ALLERGIES: POSITIVE FOR TOMATO. MEDICATIONS: Reviewed as per MAR and ordered. SOCIAL HISTORY: Positive for smoking, no EtOH or substance abuse. FAMILY HISTORY: Not contributory. PAST MEDICAL HISTORY: Hypertension, type 2 diabetes mellitus, osteoarthritis, status post total right hip replacement. PHYSICAL EXAMINATION: GENERAL: The patient is in bed, not in any cardiopulmonary distress. VITAL SIGNS: Blood pressure 109/71, temperature 98.1, respiratory rate 20 and pulse 87. HEENT: Pupils equal, reactive to light. Normal-appearing mucosa of the conjunctivae, oropharynx and nasal membrane mucosa. NECK: Supple. No JVD. No carotid bruit. No lymph node. No thyromegaly. CHEST AND LUNGS: Bilateral symmetrical expansion. Good air exchange. No rales, no rhonchi. CARDIOVASCULAR SYSTEM: PMI not localized. S1, S2. No additional sounds. ABDOMEN: Normoactive bowel sounds. No tenderness, no organomegaly, no masses. EXTREMITIES: No cyanosis, no clubbing, no edema. [employer]: Alert, awake, oriented x2. No neurological deficit could be appreciated. ASSESSMENT: 1. Status post right hip surgery. 2. Hypertension. 3. Type 2 diabetes mellitus. 4. Elevation of BUN and creatinine. PLAN: We will start the patient on IV fluids. Will hold hydrochlorothiazide, and continue physical therapy and occupational therapy. For admission to [facility]. Man MD Thuan
--- NOTE | 2018-06-25 10:03 | CP.PCM.PN ---
Subjective - Date & Time of Evaluation Date of Evaluation: 06/25/18 Time of Evaluation: 10:00 - Subjective Subjective: Per RN, patient refused second bag IVF. Patient refused labs this am "I don't want to be stuck again." Explained to patient in detail that his kidney function was significantly decreased on last labs and we need to see if he responded to the fluids, especially as he did not get the entire amount that was ordered. Patient agrees to labs. Objective - Vital Signs/Intake and Output Vital Signs (last 24 hours): Temp Pulse Resp BP Pulse Ox 98.1 F 78 20 140/80 98 06/25/18 07:42 06/25/18 07:42 06/25/18 07:42 06/25/18 07:42 06/25/18 07:42 - Medications Medications: Current Medications Alprazolam (Xanax) 2 mg PO Q8 PRN PRN Reason: Anxiety Amlodipine Besylate (Norvasc) 10 mg PO DAILY [facility] Last Admin: 06/24/18 08:23 Dose: 10 mg Aspirin (Ecotrin) 325 mg PO DAILY [facility] Last Admin: 06/24/18 08:27 Dose: 325 mg Atorvastatin Calcium (Lipitor) 20 mg PO HS [facility] Last Admin: 06/24/18 21:26 Dose: 20 mg Cyclobenzaprine HCl (Flexeril) 10 mg PO HS [facility] Dextrose (Dextrose 50% Inj) 0 ml IV STAT PRN; Protocol PRN Reason: Hypoglycemia Protocol Dextrose (Glutose 15) 0 gm PO ONCE PRN; Protocol PRN Reason: Hypoglycemia Protocol Docusate Sodium (Colace) 100 mg PO BID [facility] Last Admin: 06/24/18 16:31 Dose: 100 mg Enoxaparin Sodium (Lovenox) 40 mg SC DAILY [facility]; Protocol Last Admin: 06/24/18 10:27 Dose: 40 mg Ergocalciferol (Drisdol 50,000 Intl Units Cap) 1 cap PO Q7D [facility] Last Admin: 06/24/18 08:23 Dose: 1 cap Ferrous Sulfate (Feosol) 325 mg PO BID [facility] Last Admin: 06/24/18 16:32 Dose: 325 mg Folic Acid (Folic Acid) 1 mg PO DAILY [facility] Last Admin: 06/24/18 08:23 Dose: 1 mg Glucagon (Glucagen Diagnostic Kit) 0 mg IM STAT PRN; Protocol PRN Reason: Hypoglycemia Protocol Hydrochlorothiazide (Hydrodiuril) 25 mg PO DAILY [facility] Last Admin: 06/24/18 08:24 Dose: 25 mg Insulin Human Regular (Humulin R) 0 units SC ACCU-CHECK [facility]; Protocol Last Admin: 06/25/18 06:24 Dose: 2 u Metformin HCl (Glucophage) 850 mg PO BIDWM [facility] Last Admin: 06/24/18 16:32 Dose: 850 mg Metoprolol Tartrate (Lopressor) 50 mg PO Q12 [facility] Last Admin: 06/24/18 21:27 Dose: 50 mg Oxycodone/Acetaminophen (Percocet 5/325 Mg Tab) 1 tab PO Q6 PRN PRN Reason: Pain, moderate (4-7) Stop: 06/26/18 22:41 Oxycodone/Acetaminophen (Percocet 5/325 Mg Tab) 2 tab PO Q6 PRN PRN Reason: Pain, severe (8-10) Stop: 06/26/18 23:26 Last Admin: 06/24/18 09:37 Dose: 2 tab Pantoprazole Sodium (Protonix Ec Tab) 40 mg PO DAILY [facility] Last Admin: 06/24/18 08:23 Dose: 40 mg Sitagliptin Phosphate (Januvia) 100 mg PO DAILY [facility] Last Admin: 06/24/18 08:24 Dose: 100 mg - Labs Labs: 06/24/18 07:00 06/24/18 07:00 - Extremities Exam Additional comments: right hip dry, intact, no erythema Right hip: incision clean, dry, intact, no drainage, no erythema. +ROM ankle/toes, sensation intact, +DP/PT pulses calves soft NT neg homans Assessment and Plan (1) Dislocation of hip prosthesis Assessment & Plan: POD#6 s/p right hip revision, I&D, wound closure cont hip precautions VTE proph d/w Dr. Larose yesterday, HCTZ held and IVF ordered, encourage PO intact labs in am refused by patient, patient advised of risks non compliance with medicaton and of not checking labs daily at this point as must recheck renal function, patient agrees cont PT/OT d/w Dr. Moy, agrees with above Status: Acute (2) Wound dehiscence, surgical Status: Acute
[2018-06-25] MEDS: Aspirin 325 mg EC Tablets PO SCH (10:09)
[2018-06-25] MEDS: Enoxaparin 40 mg Syringe SC SCH (10:12)
[2018-06-25] MEDS: Pantoprazole 40 mg EC Tab PO SCH (10:12)
[2018-06-25 14:22] LABS: MEAN CELL VOLUME 81.5 fl (80.0-94.0); MEAN CORPUSCULAR HEMOGLOBIN 26.3 pg (27.0-31.0); MEAN CORPUSCULAR HGB CONC 32.3 g/dL (33.0-37.0); RBC 4.16 Mil/uL (4.40-5.90); RED CELL DISTRIBUTION WIDTH 16.4 % (11.5-14.5); WHITE BLOOD COUNT 11.2 K/uL (4.8-10.8)
[2018-06-25] MEDS: Oxycodone/Acetaminophen 5/325 mg Tab PO PRN (15:06)
[2018-06-25 15:08] LABS: ALBUMIN 3.9 g/dL (3.5-5.0); ALT/SGPT 17 U/L (21-72); AST/SGOT 30 U/L (17-59); BLOOD UREA NITROGEN 20 mg/dl (9-20); CALCIUM 8.8 mg/dL (8.4-10.2); GFR NON-AFRICAN AMERICAN > 60
[2018-06-26] MEDS: Insulin Regular 100 units/ml SC SCH ×5 (00:13→23:12)
[2018-06-26] MEDS: Aspirin 325 mg EC Tablets PO SCH (08:06)
[2018-06-26] MEDS: Pantoprazole 40 mg EC Tab PO SCH (08:06)
[2018-06-26] MEDS: Enoxaparin 40 mg Syringe SC SCH (08:07)
--- NOTE | 2018-06-26 09:10 | CP.PCM.PN ---
Subjective - Date & Time of Evaluation Date of Evaluation: 06/26/18 Time of Evaluation: 09:08 - Subjective Subjective: Patient states he feels great today. No new complaints. Objective - Vital Signs/Intake and Output Vital Signs (last 24 hours): Temp Pulse Resp BP Pulse Ox 98.8 F 75 19 109/66 99 06/26/18 08:13 06/26/18 08:13 06/26/18 08:13 06/26/18 08:13 06/26/18 08:13 - Medications Medications: Current Medications Alprazolam (Xanax) 2 mg PO Q8 PRN PRN Reason: Anxiety Amlodipine Besylate (Norvasc) 10 mg PO DAILY@1400 [facility] Aspirin (Ecotrin) 325 mg PO DAILY [facility] Last Admin: 06/26/18 08:06 Dose: 325 mg Atorvastatin Calcium (Lipitor) 20 mg PO HS [facility] Last Admin: 06/25/18 21:35 Dose: 20 mg Dextrose (Dextrose 50% Inj) 0 ml IV STAT PRN; Protocol PRN Reason: Hypoglycemia Protocol Dextrose (Glutose 15) 0 gm PO ONCE PRN; Protocol PRN Reason: Hypoglycemia Protocol Docusate Sodium (Colace) 100 mg PO BID [facility] Last Admin: 06/26/18 08:06 Dose: 100 mg Enoxaparin Sodium (Lovenox) 40 mg SC DAILY [facility]; Protocol Last Admin: 06/26/18 08:07 Dose: 40 mg Ergocalciferol (Drisdol 50,000 Intl Units Cap) 1 cap PO Q7D [facility] Last Admin: 06/24/18 08:23 Dose: 1 cap Ferrous Sulfate (Feosol) 325 mg PO BID [facility] Last Admin: 06/26/18 08:06 Dose: 325 mg Folic Acid (Folic Acid) 1 mg PO DAILY [facility] Last Admin: 06/26/18 08:06 Dose: 1 mg Glucagon (Glucagen Diagnostic Kit) 0 mg IM STAT PRN; Protocol PRN Reason: Hypoglycemia Protocol Hydrochlorothiazide (Hydrodiuril) 25 mg PO DAILY [facility] Last Admin: 06/24/18 08:24 Dose: 25 mg Insulin Human Regular (Humulin R) 0 units SC ACCU-CHECK [facility]; Protocol Last Admin: 06/26/18 06:35 Dose: 2 u Metformin HCl (Glucophage) 850 mg PO BIDWM [facility] Last Admin: 06/26/18 08:06 Dose: 850 mg Metoprolol Tartrate (Lopressor) 50 mg PO Q12 [facility] Last Admin: 06/26/18 08:08 Dose: Not Given Oxycodone/Acetaminophen (Percocet 5/325 Mg Tab) 1 tab PO Q6 PRN PRN Reason: Pain, moderate (4-7) Stop: 06/26/18 22:41 Oxycodone/Acetaminophen (Percocet 5/325 Mg Tab) 2 tab PO Q6 PRN PRN Reason: Pain, severe (8-10) Stop: 06/26/18 23:26 Last Admin: 06/25/18 15:06 Dose: 2 tab Pantoprazole Sodium (Protonix Ec Tab) 40 mg PO DAILY [facility] Last Admin: 06/26/18 08:06 Dose: 40 mg Sitagliptin Phosphate (Januvia) 100 mg PO DAILY [facility] Last Admin: 06/26/18 08:06 Dose: 100 mg - Labs Labs: 06/25/18 14:00 06/25/18 14:00 - Extremities Exam Additional comments: Right hip: incision intact, dry, no erythema. Thigh swelling improving. +ROM ankle/toes, sensation intact, calves soft NT neg homans Assessment and Plan (1) Dislocation of hip prosthesis Assessment & Plan: POD#8 s/p revision right THR, I&D wound closure ortho stable cont PT/OT cont VTE proph d/w Dr. Moy, agrees with above Status: Acute (2) Wound dehiscence, surgical Status: Acute
[2018-06-26] MEDS: Oxycodone/Acetaminophen 5/325 mg Tab PO PRN (12:14)
--- NOTE | 2018-06-26 12:15 | PN ---
DATE: 06/24/2018 SUBJECTIVE: The patient was less nauseous and less dizzy and is cooperative to physical therapy and occupational therapy. PHYSICAL EXAMINATION: VITAL SIGNS: Blood pressure 115/69, temperature 98.7, respiratory rate 20 and pulse 87. HEENT: Pupils equal, reactive to light. Normal-appearing mucosa of the conjunctivae, oropharynx and nasal membrane mucosa. NECK: Supple. No JVD. No carotid bruits. No lymph node. No thyromegaly. CHEST AND LUNGS: Bilateral symmetrical expansion. Good air exchange. No rales. No rhonchi. CARDIOVASCULAR: PMI not localized. S1, S2. No additional sounds. ABDOMEN: Normoactive bowel sounds. No tenderness, no organomegaly. No masses. EXTREMITIES: No cyanosis. No clubbing. No edema. CENTRAL NERVOUS SYSTEM: Alert, awake, oriented x3. No neurological deficit could be appreciated. ASSESSMENT: 1. Status post revision surgery for right hip. 2. Hypertension. 3. Type 2 diabetes mellitus. 4. Resolved prerenal azotemia with acute renal failure. PLAN: Continue current medications and management. Continue physical therapy and occupational therapy. Leo Larose MD
[2018-06-26 13:20] LABS: HEMOGLOBIN 11.2 g/dL (12.0-18.0); MEAN CORPUSCULAR HEMOGLOBIN 26.9 pg (27.0-31.0); MEAN CORPUSCULAR HGB CONC 32.4 g/dL (33.0-37.0); RBC 4.16 Mil/uL (4.40-5.90); RED CELL DISTRIBUTION WIDTH 15.9 % (11.5-14.5)
[2018-06-26 13:34] LABS: ALB/GLOB RATIO 1.1 (1.0-2.1); ALBUMIN 4.1 g/dL (3.5-5.0); ALT/SGPT 18 U/L (21-72); AST/SGOT 39 U/L (17-59); BLOOD UREA NITROGEN 26 mg/dl (9-20); CALCIUM 9.1 mg/dL (8.4-10.2); GFR NON-AFRICAN AMERICAN > 60
--- NOTE | 2018-06-26 14:59 | CP.PCM.PN ---
Subjective - Date & Time of Evaluation Date of Evaluation: 06/26/18 Time of Evaluation: 11:00 - Subjective Subjective: no acute hip pain Objective - Vital Signs/Intake and Output Vital Signs (last 24 hours): Temp Pulse Resp BP Pulse Ox 98.4 F 77 19 123/82 98 06/26/18 12:23 06/26/18 12:23 06/26/18 12:23 06/26/18 12:23 06/26/18 12:23 - Medications Medications: Current Medications Alprazolam (Xanax) 2 mg PO Q8 PRN PRN Reason: Anxiety Amlodipine Besylate (Norvasc) 10 mg PO DAILY@1400 [facility] Aspirin (Ecotrin) 325 mg PO DAILY [facility] Last Admin: 06/26/18 08:06 Dose: 325 mg Atorvastatin Calcium (Lipitor) 20 mg PO HS [facility] Last Admin: 06/25/18 21:35 Dose: 20 mg Dextrose (Dextrose 50% Inj) 0 ml IV STAT PRN; Protocol PRN Reason: Hypoglycemia Protocol Dextrose (Glutose 15) 0 gm PO ONCE PRN; Protocol PRN Reason: Hypoglycemia Protocol Docusate Sodium (Colace) 100 mg PO BID [facility] Last Admin: 06/26/18 08:06 Dose: 100 mg Enoxaparin Sodium (Lovenox) 40 mg SC DAILY [facility]; Protocol Last Admin: 06/26/18 08:07 Dose: 40 mg Ergocalciferol (Drisdol 50,000 Intl Units Cap) 1 cap PO Q7D [facility] Last Admin: 06/24/18 08:23 Dose: 1 cap Ferrous Sulfate (Feosol) 325 mg PO BID [facility] Last Admin: 06/26/18 08:06 Dose: 325 mg Folic Acid (Folic Acid) 1 mg PO DAILY [facility] Last Admin: 06/26/18 08:06 Dose: 1 mg Glucagon (Glucagen Diagnostic Kit) 0 mg IM STAT PRN; Protocol PRN Reason: Hypoglycemia Protocol Hydrochlorothiazide (Hydrodiuril) 25 mg PO DAILY [facility] Last Admin: 06/24/18 08:24 Dose: 25 mg Insulin Human Regular (Humulin R) 0 units SC ACCU-CHECK [facility]; Protocol Last Admin: 06/26/18 12:23 Dose: 2 units Metformin HCl (Glucophage) 850 mg PO BIDWM [facility] Last Admin: 06/26/18 08:06 Dose: 850 mg Metoprolol Tartrate (Lopressor) 50 mg PO Q12 [facility] Last Admin: 06/26/18 08:08 Dose: Not Given Oxycodone/Acetaminophen (Percocet 5/325 Mg Tab) 1 tab PO Q6 PRN PRN Reason: Pain, moderate (4-7) Stop: 06/26/18 22:41 Oxycodone/Acetaminophen (Percocet 5/325 Mg Tab) 2 tab PO Q6 PRN PRN Reason: Pain, severe (8-10) Stop: 06/26/18 23:26 Last Admin: 06/26/18 12:14 Dose: 2 tab Pantoprazole Sodium (Protonix Ec Tab) 40 mg PO DAILY [facility] Last Admin: 06/26/18 08:06 Dose: 40 mg Sitagliptin Phosphate (Januvia) 100 mg PO DAILY [facility] Last Admin: 06/26/18 08:06 Dose: 100 mg - Labs Labs: 06/26/18 12:46 06/26/18 12:46 - Constitutional Appears: Well - Head Exam Head Exam: ATRAUMATIC, NORMAL INSPECTION, NORMOCEPHALIC - Eye Exam Eye Exam: EOMI, Normal appearance, PERRL Pupil Exam: NORMAL ACCOMODATION - ENT Exam ENT Exam: Mucous Membranes Moist, Normal Exam - Neck Exam Neck Exam: Full ROM, Normal Inspection - Respiratory Exam Respiratory Exam: Clear to Ausculation Bilateral, NORMAL BREATHING PATTERN - Cardiovascular Exam Cardiovascular Exam: REGULAR RHYTHM - GI/Abdominal Exam GI & Abdominal Exam: Soft, Normal Bowel Sounds - Rectal Exam Rectal Exam: NORMAL INSPECTION - Exam External exam: NORMAL EXTERNAL EXAM - Extremities Exam Extremities Exam: Full ROM, Normal Capillary Refill, Normal Inspection - Back Exam Back Exam: NORMAL INSPECTION - Neurological Exam Neurological Exam: Alert Neuro motor strength exam: Right Lower Extremity: 3 - Psychiatric Exam Psychiatric exam: Normal Affect, Normal Mood - Skin Skin Exam: Dry, Intact Assessment and Plan (1) Broken internal hip prosthesis Assessment & Plan: plan for range of motion, strengthening, transfers and gait training adl, equipment eval Status: Acute (2) Diabetes mellitus type 2, uncontrolled Status: Acute (3) Dislocation of hip prosthesis Status: Acute (4) Hip fracture Status: Acute (5) Vitamin D deficiency Status: Acute
[2018-06-27] MEDS: Insulin Regular 100 units/ml SC SCH ×4 (06:33→23:22)
[2018-06-27] MEDS: Pantoprazole 40 mg EC Tab PO SCH (08:34)
[2018-06-27] MEDS: Aspirin 325 mg EC Tablets PO SCH ×2 (08:36→08:39)
[2018-06-27] MEDS: Enoxaparin 40 mg Syringe SC SCH (08:36)
[2018-06-27] MEDS ORDERED: Oxycodone/Acetaminophen 5/325 mg Tab PO PRN (11:42)
[2018-06-27] MEDS: Oxycodone/Acetaminophen 5/325 mg Tab PO PRN (11:55)
--- NOTE | 2018-06-28 00:08 | PN ---
DATE: 06/27/2018 SUBJECTIVE: The patient is seen today, on 06/27/2018. He is having no nausea and he is cooperative to both physical therapy and occupational therapy. PHYSICAL EXAMINATION: VITAL SIGNS: Blood pressure is 98/64, temperature 97.5, respiratory rate 18 and pulse 73. HEENT: Pupils equal, reactive to light. Normal-appearing mucosa of the conjunctivae, oropharynx and nasal membrane mucosa. NECK: Supple. No JVD. No carotid bruits. No lymph node. No thyromegaly. CHEST AND LUNGS: Bilateral symmetrical expansion. Good air exchange. No rales. No rhonchi. CARDIOVASCULAR: PMI not localized. S1, S2. No additional sounds. ABDOMEN: Normoactive bowel sounds. No tenderness. No organomegaly. No masses. EXTREMITIES: No cyanosis. No clubbing. No edema. CENTRAL NERVOUS SYSTEM: Alert, awake, oriented x2. No neurological deficit could be appreciated. ASSESSMENT: 1. 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 2. Dehiscence of the wound which was repaired. 3. Hypertension. 4. Type 2 diabetes mellitus. PLAN: Continue current medications. Surgical wound care as per Orthopedic, physical therapy and occupational therapy. Leo Larose MD
[2018-06-28] MEDS: Insulin Regular 100 units/ml SC SCH ×4 (06:24→23:37)
[2018-06-28] MEDS: Pantoprazole 40 mg EC Tab PO SCH (08:38)
[2018-06-28] MEDS: Aspirin 325 mg EC Tablets PO SCH (08:38)
[2018-06-28] MEDS: Enoxaparin 40 mg Syringe SC SCH (10:05)
[2018-06-28] MEDS: Oxycodone/Acetaminophen 5/325 mg Tab PO PRN (12:38)
[2018-06-29] MEDS: Insulin Regular 100 units/ml SC SCH ×4 (07:30→22:30)
[2018-06-29] MEDS: Enoxaparin 40 mg Syringe SC SCH (08:48)
[2018-06-29] MEDS: Pantoprazole 40 mg EC Tab PO SCH (08:49)
[2018-06-29] MEDS: Aspirin 325 mg EC Tablets PO SCH (08:49)
--- NOTE | 2018-06-29 10:36 | CP.PCM.PN ---
Subjective - Date & Time of Evaluation Date of Evaluation: 06/29/18 Time of Evaluation: 10:34 - Subjective Subjective: Patient states he has been feeling good. No new complaints. Objective - Vital Signs/Intake and Output Vital Signs (last 24 hours): Temp Pulse Resp BP Pulse Ox 98.7 F 90 18 153/91 H 99 06/29/18 08:46 06/29/18 08:50 06/29/18 08:46 06/29/18 08:50 06/29/18 08:46 - Medications Medications: Current Medications Alprazolam (Xanax) 2 mg PO Q8 PRN PRN Reason: Anxiety Amlodipine Besylate (Norvasc) 10 mg PO DAILY@1400 [facility] Last Admin: 06/28/18 16:36 Dose: 10 mg Aspirin (Ecotrin) 325 mg PO DAILY [facility] Last Admin: 06/29/18 08:49 Dose: 325 mg Atorvastatin Calcium (Lipitor) 20 mg PO HS [facility] Last Admin: 06/28/18 21:11 Dose: 20 mg Dextrose (Dextrose 50% Inj) 0 ml IV STAT PRN; Protocol PRN Reason: Hypoglycemia Protocol Dextrose (Glutose 15) 0 gm PO ONCE PRN; Protocol PRN Reason: Hypoglycemia Protocol Docusate Sodium (Colace) 100 mg PO BID [facility] Last Admin: 06/29/18 08:51 Dose: 100 mg Enoxaparin Sodium (Lovenox) 40 mg SC DAILY [facility]; Protocol Last Admin: 06/29/18 08:48 Dose: 40 mg Ergocalciferol (Drisdol 50,000 Intl Units Cap) 1 cap PO Q7D [facility] Last Admin: 06/24/18 08:23 Dose: 1 cap Ferrous Sulfate (Feosol) 325 mg PO BID [facility] Last Admin: 06/29/18 08:49 Dose: 325 mg Folic Acid (Folic Acid) 1 mg PO DAILY [facility] Last Admin: 06/29/18 08:50 Dose: 1 mg Glucagon (Glucagen Diagnostic Kit) 0 mg IM STAT PRN; Protocol PRN Reason: Hypoglycemia Protocol Hydrochlorothiazide (Hydrodiuril) 25 mg PO DAILY [facility] Last Admin: 06/24/18 08:24 Dose: 25 mg Insulin Human Regular (Humulin R) 0 units SC ACCU-CHECK [facility]; Protocol Last Admin: 06/29/18 07:30 Dose: Not Given Metformin HCl (Glucophage) 850 mg PO BIDWM [facility] Last Admin: 06/29/18 08:49 Dose: 850 mg Metoprolol Tartrate (Lopressor) 50 mg PO Q12 [facility] Last Admin: 06/29/18 08:50 Dose: 50 mg Oxycodone/Acetaminophen (Percocet 5/325 Mg Tab) 1 tab PO Q6 PRN PRN Reason: Pain, moderate (4-7) Stop: 06/30/18 11:43 Oxycodone/Acetaminophen (Percocet 5/325 Mg Tab) 2 tab PO Q6 PRN PRN Reason: Pain, severe (8-10) Stop: 06/30/18 11:43 Last Admin: 06/28/18 12:38 Dose: 2 tab Pantoprazole Sodium (Protonix Ec Tab) 40 mg PO DAILY [facility] Last Admin: 06/29/18 08:49 Dose: 40 mg Sitagliptin Phosphate (Januvia) 100 mg PO DAILY [facility] Last Admin: 06/29/18 08:49 Dose: 100 mg - Labs Labs: 06/26/18 12:46 06/26/18 12:46 - Extremities Exam Additional comments: right hip: incision intact, dry, no erythema, +ROM ankle/toes, sensation intact, calves soft NT negh omans Assessment and Plan (1) Dislocation of hip prosthesis Assessment & Plan: POD#10 s/p right hip revision ortho stable, progressing well cont PT/OT cont VTE proph renal function now normal d/w Dr. grimaldo, agrees with above Status: Acute (2) Wound dehiscence, surgical Status: Acute
[2018-06-29] MEDS: Oxycodone/Acetaminophen 5/325 mg Tab PO PRN (15:28)
--- NOTE | 2018-06-29 16:16 | RAD ---
PROCEDURE: Right Hip Radiographs. HISTORY: Right hip pain COMPARISON: 06/18/2018 TECHNIQUE: 3 views of the right hip were performed. FINDINGS: BONES: There is once again evidence of a right total hip prosthesis. This appears in stable anatomic position. No fracture is seen. There is no new lucency adjacent to the prostheses. No dislocation of the prosthesis is seen. Visualized left hip shows evidence of previously noted left hip replacement. JOINTS: See above SOFT TISSUES: There is stable postsurgical changes. OTHER FINDINGS: None. IMPRESSION: Status post right hip replacement in grossly stable anatomic position. No appreciable fracture.
--- NOTE | 2018-06-29 16:38 | CP.PCM.PN ---
Subjective - Date & Time of Evaluation Date of Evaluation: 06/27/18 Time of Evaluation: 10:00 - Subjective Subjective: patient is feeling much better, no acute complaints Objective - Vital Signs/Intake and Output Vital Signs (last 24 hours): Temp Pulse Resp BP Pulse Ox 98.7 F 84 18 145/80 99 06/29/18 08:46 06/29/18 14:30 06/29/18 08:46 06/29/18 14:30 06/29/18 08:46 - Medications Medications: Current Medications Alprazolam (Xanax) 2 mg PO Q8 PRN PRN Reason: Anxiety Amlodipine Besylate (Norvasc) 10 mg PO DAILY@1400 [facility] Last Admin: 06/29/18 14:30 Dose: 10 mg Aspirin (Ecotrin) 325 mg PO DAILY [facility] Last Admin: 06/29/18 08:49 Dose: 325 mg Atorvastatin Calcium (Lipitor) 20 mg PO HS [facility] Last Admin: 06/28/18 21:11 Dose: 20 mg Dextrose (Dextrose 50% Inj) 0 ml IV STAT PRN; Protocol PRN Reason: Hypoglycemia Protocol Dextrose (Glutose 15) 0 gm PO ONCE PRN; Protocol PRN Reason: Hypoglycemia Protocol Docusate Sodium (Colace) 100 mg PO BID [facility] Last Admin: 06/29/18 08:51 Dose: 100 mg Enoxaparin Sodium (Lovenox) 40 mg SC DAILY [facility]; Protocol Last Admin: 06/29/18 08:48 Dose: 40 mg Ergocalciferol (Drisdol 50,000 Intl Units Cap) 1 cap PO Q7D [facility] Last Admin: 06/24/18 08:23 Dose: 1 cap Ferrous Sulfate (Feosol) 325 mg PO BID [facility] Last Admin: 06/29/18 08:49 Dose: 325 mg Folic Acid (Folic Acid) 1 mg PO DAILY [facility] Last Admin: 06/29/18 08:50 Dose: 1 mg Glucagon (Glucagen Diagnostic Kit) 0 mg IM STAT PRN; Protocol PRN Reason: Hypoglycemia Protocol Hydrochlorothiazide (Hydrodiuril) 25 mg PO DAILY [facility] Last Admin: 06/24/18 08:24 Dose: 25 mg Insulin Human Regular (Humulin R) 0 units SC ACCU-CHECK [facility]; Protocol Last Admin: 06/29/18 12:34 Dose: Not Given Metformin HCl (Glucophage) 850 mg PO BIDWM [facility] Last Admin: 06/29/18 08:49 Dose: 850 mg Metoprolol Tartrate (Lopressor) 50 mg PO Q12 [facility] Last Admin: 06/29/18 08:50 Dose: 50 mg Oxycodone/Acetaminophen (Percocet 5/325 Mg Tab) 1 tab PO Q6 PRN PRN Reason: Pain, moderate (4-7) Stop: 06/30/18 11:43 Oxycodone/Acetaminophen (Percocet 5/325 Mg Tab) 2 tab PO Q6 PRN PRN Reason: Pain, severe (8-10) Stop: 06/30/18 11:43 Last Admin: 06/29/18 15:28 Dose: 2 tab Pantoprazole Sodium (Protonix Ec Tab) 40 mg PO DAILY [facility] Last Admin: 06/29/18 08:49 Dose: 40 mg Sitagliptin Phosphate (Januvia) 100 mg PO DAILY [facility] Last Admin: 06/29/18 08:49 Dose: 100 mg - Labs Labs: 06/26/18 12:46 06/26/18 12:46 - Constitutional Appears: Well - Head Exam Head Exam: ATRAUMATIC, NORMAL INSPECTION, NORMOCEPHALIC - Eye Exam Eye Exam: EOMI, Normal appearance Pupil Exam: NORMAL ACCOMODATION, PERRL - ENT Exam ENT Exam: Mucous Membranes Moist, Normal Exam - Neck Exam Neck Exam: Full ROM, Normal Inspection - Respiratory Exam Respiratory Exam: Clear to Ausculation Bilateral, NORMAL BREATHING PATTERN - Cardiovascular Exam Cardiovascular Exam: REGULAR RHYTHM - GI/Abdominal Exam GI & Abdominal Exam: Normal Bowel Sounds - Rectal Exam Rectal Exam: NORMAL INSPECTION - Exam External exam: NORMAL EXTERNAL EXAM - Extremities Exam Extremities Exam: Normal Capillary Refill, Normal Inspection Additional comments: right leg weakness - Back Exam Back Exam: NORMAL INSPECTION - Neurological Exam Neurological Exam: Alert, Awake Neuro motor strength exam: Right Lower Extremity: 3 - Psychiatric Exam Psychiatric exam: Normal Affect, Normal Mood - Skin Skin Exam: Normal Color Assessment and Plan (1) Broken internal hip prosthesis Assessment & Plan: plan for physical, occupational, therapy for range of motion, strengthening transfers and gait training Status: Acute (2) Diabetes mellitus type 2, uncontrolled Status: Acute (3) Dislocation of hip prosthesis Status: Acute (4) Hip fracture Status: Acute (5) Vitamin D deficiency Status: Acute
--- NOTE | 2018-06-29 16:56 | CP.PCM.PN ---
Subjective - Date & Time of Evaluation Date of Evaluation: 06/29/18 Time of Evaluation: 16:00 - Subjective Subjective: patient claims he is improving, decreased discomfort Objective - Vital Signs/Intake and Output Vital Signs (last 24 hours): Temp Pulse Resp BP Pulse Ox 98.7 F 84 18 145/80 99 06/29/18 08:46 06/29/18 14:30 06/29/18 08:46 06/29/18 14:30 06/29/18 08:46 - Medications Medications: Current Medications Alprazolam (Xanax) 2 mg PO Q8 PRN PRN Reason: Anxiety Amlodipine Besylate (Norvasc) 10 mg PO DAILY@1400 [facility] Last Admin: 06/29/18 14:30 Dose: 10 mg Aspirin (Ecotrin) 325 mg PO DAILY [facility] Last Admin: 06/29/18 08:49 Dose: 325 mg Atorvastatin Calcium (Lipitor) 20 mg PO HS [facility] Last Admin: 06/28/18 21:11 Dose: 20 mg Dextrose (Dextrose 50% Inj) 0 ml IV STAT PRN; Protocol PRN Reason: Hypoglycemia Protocol Dextrose (Glutose 15) 0 gm PO ONCE PRN; Protocol PRN Reason: Hypoglycemia Protocol Docusate Sodium (Colace) 100 mg PO BID [facility] Last Admin: 06/29/18 08:51 Dose: 100 mg Enoxaparin Sodium (Lovenox) 40 mg SC DAILY [facility]; Protocol Last Admin: 06/29/18 08:48 Dose: 40 mg Ergocalciferol (Drisdol 50,000 Intl Units Cap) 1 cap PO Q7D [facility] Last Admin: 06/24/18 08:23 Dose: 1 cap Ferrous Sulfate (Feosol) 325 mg PO BID [facility] Last Admin: 06/29/18 08:49 Dose: 325 mg Folic Acid (Folic Acid) 1 mg PO DAILY [facility] Last Admin: 06/29/18 08:50 Dose: 1 mg Glucagon (Glucagen Diagnostic Kit) 0 mg IM STAT PRN; Protocol PRN Reason: Hypoglycemia Protocol Hydrochlorothiazide (Hydrodiuril) 25 mg PO DAILY [facility] Last Admin: 06/24/18 08:24 Dose: 25 mg Insulin Human Regular (Humulin R) 0 units SC ACCU-CHECK [facility]; Protocol Last Admin: 06/29/18 12:34 Dose: Not Given Metformin HCl (Glucophage) 850 mg PO BIDWM [facility] Last Admin: 06/29/18 08:49 Dose: 850 mg Metoprolol Tartrate (Lopressor) 50 mg PO Q12 [facility] Last Admin: 06/29/18 08:50 Dose: 50 mg Oxycodone/Acetaminophen (Percocet 5/325 Mg Tab) 1 tab PO Q6 PRN PRN Reason: Pain, moderate (4-7) Stop: 06/30/18 11:43 Oxycodone/Acetaminophen (Percocet 5/325 Mg Tab) 2 tab PO Q6 PRN PRN Reason: Pain, severe (8-10) Stop: 06/30/18 11:43 Last Admin: 06/29/18 15:28 Dose: 2 tab Pantoprazole Sodium (Protonix Ec Tab) 40 mg PO DAILY [facility] Last Admin: 06/29/18 08:49 Dose: 40 mg Sitagliptin Phosphate (Januvia) 100 mg PO DAILY [facility] Last Admin: 06/29/18 08:49 Dose: 100 mg - Labs Labs: 06/26/18 12:46 06/26/18 12:46 - Constitutional Appears: Well - Head Exam Head Exam: ATRAUMATIC, NORMAL INSPECTION, NORMOCEPHALIC - Eye Exam Eye Exam: EOMI, Normal appearance Pupil Exam: NORMAL ACCOMODATION, PERRL - ENT Exam ENT Exam: Mucous Membranes Moist, Normal Exam - Neck Exam Neck Exam: Normal Inspection - Respiratory Exam Respiratory Exam: Clear to Ausculation Bilateral, NORMAL BREATHING PATTERN - Cardiovascular Exam Cardiovascular Exam: REGULAR RHYTHM - GI/Abdominal Exam GI & Abdominal Exam: Normal Bowel Sounds - Rectal Exam Rectal Exam: NORMAL INSPECTION - Exam External exam: NORMAL EXTERNAL EXAM - Extremities Exam Extremities Exam: Full ROM, Normal Capillary Refill, Normal Inspection - Back Exam Back Exam: NORMAL INSPECTION - Neurological Exam Neurological Exam: Alert, Awake Neuro motor strength exam: Right Lower Extremity: 3 - Psychiatric Exam Psychiatric exam: Normal Affect - Skin Skin Exam: Normal Color Assessment and Plan (1) Broken internal hip prosthesis Assessment & Plan: pain management stable, continue with present meds, continue with physical, occupational therapy and discharge planning Status: Acute (2) Diabetes mellitus type 2, uncontrolled Status: Acute (3) Dislocation of hip prosthesis Status: Acute (4) Hip fracture Status: Acute (5) Vitamin D deficiency Status: Acute
[2018-06-30] MEDS: Insulin Regular 100 units/ml SC SCH ×4 (06:28→22:01)
[2018-06-30] MEDS: Aspirin 325 mg EC Tablets PO SCH (08:31)
[2018-06-30] MEDS: Enoxaparin 40 mg Syringe SC SCH (08:31)
[2018-06-30] MEDS: Pantoprazole 40 mg EC Tab PO SCH (08:32)
--- NOTE | 2018-06-30 08:45 | CP.PCM.PN ---
Subjective - Date & Time of Evaluation Date of Evaluation: 06/30/18 Time of Evaluation: 08:00 - Subjective Subjective: Patient seen and examined OOB to chair comfortable. Pain is well controlled. Tolerating PT well. No other complaints. Objective - Vital Signs/Intake and Output Vital Signs (last 24 hours): Temp Pulse Resp BP Pulse Ox 97.6 F 71 20 117/70 97 06/29/18 20:01 06/30/18 08:30 06/29/18 20:01 06/30/18 08:30 06/29/18 20:01 - Medications Medications: Current Medications Alprazolam (Xanax) 2 mg PO Q8 PRN PRN Reason: Anxiety Amlodipine Besylate (Norvasc) 10 mg PO DAILY@1400 [facility] Last Admin: 06/29/18 14:30 Dose: 10 mg Aspirin (Ecotrin) 325 mg PO DAILY [facility] Last Admin: 06/30/18 08:31 Dose: 325 mg Atorvastatin Calcium (Lipitor) 20 mg PO HS [facility] Last Admin: 06/29/18 21:03 Dose: 20 mg Dextrose (Dextrose 50% Inj) 0 ml IV STAT PRN; Protocol PRN Reason: Hypoglycemia Protocol Dextrose (Glutose 15) 0 gm PO ONCE PRN; Protocol PRN Reason: Hypoglycemia Protocol Docusate Sodium (Colace) 100 mg PO BID [facility] Last Admin: 06/30/18 08:31 Dose: 100 mg Enoxaparin Sodium (Lovenox) 40 mg SC DAILY [facility]; Protocol Last Admin: 06/30/18 08:31 Dose: 40 mg Ergocalciferol (Drisdol 50,000 Intl Units Cap) 1 cap PO Q7D [facility] Last Admin: 06/24/18 08:23 Dose: 1 cap Ferrous Sulfate (Feosol) 325 mg PO BID [facility] Last Admin: 06/30/18 08:31 Dose: Not Given Folic Acid (Folic Acid) 1 mg PO DAILY [facility] Last Admin: 06/30/18 08:30 Dose: 1 mg Glucagon (Glucagen Diagnostic Kit) 0 mg IM STAT PRN; Protocol PRN Reason: Hypoglycemia Protocol Hydrochlorothiazide (Hydrodiuril) 25 mg PO DAILY [facility] Last Admin: 06/24/18 08:24 Dose: 25 mg Insulin Human Regular (Humulin R) 0 units SC ACCU-CHECK [facility]; Protocol Last Admin: 06/30/18 06:28 Dose: Not Given Metformin HCl (Glucophage) 850 mg PO BIDWM [facility] Last Admin: 06/30/18 08:31 Dose: 850 mg Metoprolol Tartrate (Lopressor) 50 mg PO Q12 [facility] Last Admin: 06/30/18 08:30 Dose: 50 mg Oxycodone/Acetaminophen (Percocet 5/325 Mg Tab) 1 tab PO Q6 PRN PRN Reason: Pain, moderate (4-7) Stop: 06/30/18 11:43 Oxycodone/Acetaminophen (Percocet 5/325 Mg Tab) 2 tab PO Q6 PRN PRN Reason: Pain, severe (8-10) Stop: 06/30/18 11:43 Last Admin: 06/29/18 15:28 Dose: 2 tab Pantoprazole Sodium (Protonix Ec Tab) 40 mg PO DAILY [facility] Last Admin: 06/30/18 08:32 Dose: Not Given Sitagliptin Phosphate (Januvia) 100 mg PO DAILY [facility] Last Admin: 06/30/18 08:31 Dose: 100 mg - Labs Labs: 06/26/18 12:46 06/26/18 12:46 - Back Exam Additional comments: RLE: Dressings CDI mild swelling no tenderness sensation intact SP/DP/TN motor intact EHL/FHL/TA/G/Q/HS pedal pulse intact calves soft NT b/l Assessment and Plan (1) Dislocation of hip prosthesis Assessment & Plan: POD#11 s/p revision R YO -PT/OT advance to WBAT -DVT ppx -posterior hip precautions -orthopedically stable -above d/w Dr. Moy who agrees Status: Acute
--- NOTE | 2018-06-30 14:51 | CP.PCM.PN ---
Subjective - Date & Time of Evaluation Date of Evaluation: 06/30/18 Time of Evaluation: 14:25 - Subjective Subjective: no acute hip pain , doing well Objective - Vital Signs/Intake and Output Vital Signs (last 24 hours): Temp Pulse Resp BP Pulse Ox 98.0 F 71 19 117/70 97 06/30/18 09:06 06/30/18 13:25 06/30/18 09:06 06/30/18 13:25 06/30/18 13:25 - Medications Medications: Current Medications Alprazolam (Xanax) 2 mg PO Q8 PRN PRN Reason: Anxiety Amlodipine Besylate (Norvasc) 10 mg PO DAILY@1400 [facility] Last Admin: 06/29/18 14:30 Dose: 10 mg Aspirin (Ecotrin) 325 mg PO DAILY [facility] Last Admin: 06/30/18 08:31 Dose: 325 mg Atorvastatin Calcium (Lipitor) 20 mg PO HS [facility] Last Admin: 06/29/18 21:03 Dose: 20 mg Dextrose (Dextrose 50% Inj) 0 ml IV STAT PRN; Protocol PRN Reason: Hypoglycemia Protocol Dextrose (Glutose 15) 0 gm PO ONCE PRN; Protocol PRN Reason: Hypoglycemia Protocol Docusate Sodium (Colace) 100 mg PO BID [facility] Last Admin: 06/30/18 08:31 Dose: 100 mg Enoxaparin Sodium (Lovenox) 40 mg SC DAILY [facility]; Protocol Last Admin: 06/30/18 08:31 Dose: 40 mg Ergocalciferol (Drisdol 50,000 Intl Units Cap) 1 cap PO Q7D [facility] Last Admin: 06/24/18 08:23 Dose: 1 cap Ferrous Sulfate (Feosol) 325 mg PO BID [facility] Last Admin: 06/30/18 08:31 Dose: Not Given Folic Acid (Folic Acid) 1 mg PO DAILY [facility] Last Admin: 06/30/18 08:30 Dose: 1 mg Glucagon (Glucagen Diagnostic Kit) 0 mg IM STAT PRN; Protocol PRN Reason: Hypoglycemia Protocol Hydrochlorothiazide (Hydrodiuril) 25 mg PO DAILY [facility] Last Admin: 06/24/18 08:24 Dose: 25 mg Insulin Human Regular (Humulin R) 0 units SC ACCU-CHECK [facility]; Protocol Last Admin: 06/30/18 12:59 Dose: Not Given Metformin HCl (Glucophage) 850 mg PO BIDWM [facility] Last Admin: 06/30/18 08:31 Dose: 850 mg Metoprolol Tartrate (Lopressor) 50 mg PO Q12 [facility] Last Admin: 06/30/18 08:30 Dose: 50 mg Pantoprazole Sodium (Protonix Ec Tab) 40 mg PO DAILY [facility] Last Admin: 06/30/18 08:32 Dose: Not Given Sitagliptin Phosphate (Januvia) 100 mg PO DAILY [facility] Last Admin: 06/30/18 08:31 Dose: 100 mg - Labs Labs: 06/26/18 12:46 06/26/18 12:46 - Constitutional Appears: Well - Head Exam Head Exam: ATRAUMATIC, NORMAL INSPECTION, NORMOCEPHALIC - Eye Exam Eye Exam: EOMI, Normal appearance, PERRL Pupil Exam: NORMAL ACCOMODATION - ENT Exam ENT Exam: Mucous Membranes Moist, Normal Exam - Neck Exam Neck Exam: Full ROM, Normal Inspection - Respiratory Exam Respiratory Exam: Clear to Ausculation Bilateral, NORMAL BREATHING PATTERN - Cardiovascular Exam Cardiovascular Exam: REGULAR RHYTHM - GI/Abdominal Exam GI & Abdominal Exam: Soft, Normal Bowel Sounds - Rectal Exam Rectal Exam: NORMAL INSPECTION - Exam External exam: NORMAL EXTERNAL EXAM - Extremities Exam Extremities Exam: Full ROM, Normal Capillary Refill, Normal Inspection - Back Exam Back Exam: NORMAL INSPECTION - Neurological Exam Neuro motor strength exam: Right Lower Extremity: 3 - Psychiatric Exam Psychiatric exam: Normal Affect, Normal Mood - Skin Skin Exam: Dry, Intact Assessment and Plan (1) Broken internal hip prosthesis Assessment & Plan: plan to continue with physical, occupational therapy, monitor skin and equipment eval. Status: Acute (2) Diabetes mellitus type 2, uncontrolled Status: Acute (3) Dislocation of hip prosthesis Status: Acute (4) Hip fracture Status: Acute (5) Vitamin D deficiency Status: Acute
[2018-06-30] MEDS ORDERED: Oxycodone/Acetaminophen 5/325 mg Tab PO PRN (20:05)
[2018-06-30] MEDS: Oxycodone/Acetaminophen 5/325 mg Tab PO PRN (21:59)
[2018-07-01] MEDS: Insulin Regular 100 units/ml SC SCH ×3 (06:02→16:59)
[2018-07-01] MEDS: Oxycodone/Acetaminophen 5/325 mg Tab PO PRN (08:31)
[2018-07-01] MEDS: Enoxaparin 40 mg Syringe SC SCH (08:32)
[2018-07-01] MEDS: Aspirin 325 mg EC Tablets PO SCH (08:34)
[2018-07-01] MEDS: Ergocalciferol 50,000 Intl Units Cap PO SCH (08:34)
[2018-07-01] MEDS: Pantoprazole 40 mg EC Tab PO SCH (08:34)
--- NOTE | 2018-07-01 10:17 | CP.PCM.PN ---
Subjective - Date & Time of Evaluation Date of Evaluation: 07/01/18 Time of Evaluation: 08:00 - Subjective Subjective: Patient seen and examined OOB to chair comfortable. Pain well controlled. Scheduled for d/c to home today. No other complaints. Objective - Vital Signs/Intake and Output Vital Signs (last 24 hours): Temp Pulse Resp BP Pulse Ox 98.4 F 83 18 160/87 H 97 07/01/18 09:08 07/01/18 09:08 07/01/18 09:08 07/01/18 09:08 07/01/18 09:08 - Medications Medications: Current Medications Alprazolam (Xanax) 2 mg PO Q8 PRN PRN Reason: Anxiety Amlodipine Besylate (Norvasc) 10 mg PO DAILY@1400 [facility] Last Admin: 06/30/18 14:51 Dose: Not Given Aspirin (Ecotrin) 325 mg PO DAILY [facility] Last Admin: 07/01/18 08:34 Dose: 325 mg Atorvastatin Calcium (Lipitor) 20 mg PO HS [facility] Last Admin: 06/30/18 21:31 Dose: 20 mg Dextrose (Dextrose 50% Inj) 0 ml IV STAT PRN; Protocol PRN Reason: Hypoglycemia Protocol Dextrose (Glutose 15) 0 gm PO ONCE PRN; Protocol PRN Reason: Hypoglycemia Protocol Docusate Sodium (Colace) 100 mg PO BID [facility] Last Admin: 07/01/18 08:37 Dose: Not Given Ergocalciferol (Drisdol 50,000 Intl Units Cap) 1 cap PO Q7D [facility] Last Admin: 07/01/18 08:34 Dose: 1 cap Ferrous Sulfate (Feosol) 325 mg PO BID [facility] Last Admin: 07/01/18 08:33 Dose: 325 mg Folic Acid (Folic Acid) 1 mg PO DAILY [facility] Last Admin: 07/01/18 08:34 Dose: 1 mg Glucagon (Glucagen Diagnostic Kit) 0 mg IM STAT PRN; Protocol PRN Reason: Hypoglycemia Protocol Hydrochlorothiazide (Hydrodiuril) 25 mg PO DAILY [facility] Last Admin: 06/24/18 08:24 Dose: 25 mg Insulin Human Regular (Humulin R) 0 units SC ACCU-CHECK [facility]; Protocol Last Admin: 07/01/18 06:02 Dose: Not Given Metformin HCl (Glucophage) 850 mg PO BIDWM [facility] Last Admin: 07/01/18 08:33 Dose: 850 mg Metoprolol Tartrate (Lopressor) 50 mg PO Q12 [facility] Last Admin: 07/01/18 08:33 Dose: 50 mg Oxycodone/Acetaminophen (Percocet 5/325 Mg Tab) 1 tab PO Q6 PRN PRN Reason: pain 1-03 Stop: 07/03/18 20:06 Oxycodone/Acetaminophen (Percocet 5/325 Mg Tab) 2 tab PO Q6 PRN PRN Reason: pain 4-7 Stop: 07/03/18 20:06 Last Admin: 07/01/18 08:31 Dose: 2 tab Pantoprazole Sodium (Protonix Ec Tab) 40 mg PO DAILY [facility] Last Admin: 07/01/18 08:34 Dose: 40 mg Sitagliptin Phosphate (Januvia) 100 mg PO DAILY [facility] Last Admin: 07/01/18 08:34 Dose: 100 mg - Labs Labs: 06/26/18 12:46 06/26/18 12:46 - Extremities Exam Additional comments: RLE: Dressings CDI Incision CDI with mitra mild swelling no tenderness sensation intact SP/DP/TN motor intact EHL/FHL/TA/G/Q/HS pedal pulse intact calves soft NT b/l Assessment and Plan (1) Dislocation of hip prosthesis Assessment & Plan: POD#12 s/p revision R YO -dressings changed -PT/OT WBAT -DVT ppx -posterior hip precautions -orthopedically stable for d/c -f/u in office within 7-10 days -above d/w Dr. Moy who agrees Status: Acute
[2018-07-01 16:24] VITALS: BP 116/74; PULSE 71; RESP 20; TEMP 97.9; O2SAT 95
--- NOTE | 2018-07-01 19:46 | CP.PCM.PN ---
Subjective - Date & Time of Evaluation Date of Evaluation: 07/01/18 Time of Evaluation: 11:00 - Subjective Subjective: no acute complaints of hip pain at present Objective - Vital Signs/Intake and Output Vital Signs (last 24 hours): Temp Pulse Resp BP Pulse Ox 97.9 F 71 20 116/74 95 07/01/18 16:24 07/01/18 16:24 07/01/18 16:24 07/01/18 16:24 07/01/18 16:24 - Medications Medications: Current Medications Amlodipine Besylate (Norvasc) 10 mg PO DAILY@1400 [facility] Last Admin: 07/01/18 15:26 Dose: Not Given Aspirin (Ecotrin) 325 mg PO DAILY [facility] Last Admin: 07/01/18 08:34 Dose: 325 mg Atorvastatin Calcium (Lipitor) 20 mg PO HS [facility] Last Admin: 06/30/18 21:31 Dose: 20 mg Dextrose (Dextrose 50% Inj) 0 ml IV STAT PRN; Protocol PRN Reason: Hypoglycemia Protocol Dextrose (Glutose 15) 0 gm PO ONCE PRN; Protocol PRN Reason: Hypoglycemia Protocol Docusate Sodium (Colace) 100 mg PO BID [facility] Last Admin: 07/01/18 16:56 Dose: Not Given Enoxaparin Sodium (Lovenox) 40 mg SC DAILY [facility]; Protocol Ergocalciferol (Drisdol 50,000 Intl Units Cap) 1 cap PO Q7D [facility] Last Admin: 07/01/18 08:34 Dose: 1 cap Ferrous Sulfate (Feosol) 325 mg PO BID [facility] Last Admin: 07/01/18 16:57 Dose: 325 mg Folic Acid (Folic Acid) 1 mg PO DAILY [facility] Last Admin: 07/01/18 08:34 Dose: 1 mg Glucagon (Glucagen Diagnostic Kit) 0 mg IM STAT PRN; Protocol PRN Reason: Hypoglycemia Protocol Hydrochlorothiazide (Hydrodiuril) 25 mg PO DAILY [facility] Last Admin: 06/24/18 08:24 Dose: 25 mg Insulin Human Regular (Humulin R) 0 units SC ACCU-CHECK [facility]; Protocol Last Admin: 07/01/18 16:59 Dose: Not Given Metformin HCl (Glucophage) 850 mg PO BIDWM [facility] Last Admin: 07/01/18 16:57 Dose: 850 mg Metoprolol Tartrate (Lopressor) 50 mg PO Q12 [facility] Last Admin: 07/01/18 08:33 Dose: 50 mg Oxycodone/Acetaminophen (Percocet 5/325 Mg Tab) 1 tab PO Q6 PRN PRN Reason: pain 1-03 Stop: 07/03/18 20:06 Oxycodone/Acetaminophen (Percocet 5/325 Mg Tab) 2 tab PO Q6 PRN PRN Reason: pain 4-7 Stop: 07/03/18 20:06 Last Admin: 07/01/18 08:31 Dose: 2 tab Pantoprazole Sodium (Protonix Ec Tab) 40 mg PO DAILY [facility] Last Admin: 07/01/18 08:34 Dose: 40 mg Sitagliptin Phosphate (Januvia) 100 mg PO DAILY [facility] Last Admin: 07/01/18 08:34 Dose: 100 mg - Labs Labs: 06/26/18 12:46 06/26/18 12:46 - Constitutional Appears: Well - Head Exam Head Exam: ATRAUMATIC, NORMAL INSPECTION, NORMOCEPHALIC - Eye Exam Eye Exam: EOMI, Normal appearance Pupil Exam: NORMAL ACCOMODATION, PERRL - ENT Exam ENT Exam: Mucous Membranes Moist, Normal Exam - Neck Exam Neck Exam: Full ROM, Normal Inspection - Respiratory Exam Respiratory Exam: Clear to Ausculation Bilateral, NORMAL BREATHING PATTERN - Cardiovascular Exam Cardiovascular Exam: REGULAR RHYTHM - GI/Abdominal Exam GI & Abdominal Exam: Normal Bowel Sounds - Rectal Exam Rectal Exam: NORMAL INSPECTION - Exam External exam: NORMAL EXTERNAL EXAM - Extremities Exam Extremities Exam: Full ROM, Normal Capillary Refill - Back Exam Back Exam: NORMAL INSPECTION - Neurological Exam Neurological Exam: Alert Neuro motor strength exam: Right Lower Extremity: 3 - Psychiatric Exam Psychiatric exam: Normal Mood - Skin Skin Exam: Normal Color Assessment and Plan (1) Broken internal hip prosthesis Assessment & Plan: status post physical, occupational therapy, discussed Dc planning, wants home services then outpatient. follow up with PMD and orthopedic after Dc Status: Acute (2) Diabetes mellitus type 2, uncontrolled Status: Acute (3) Dislocation of hip prosthesis Status: Acute (4) Hip fracture Status: Acute (5) Vitamin D deficiency Status: Acute
--- NOTE | 2018-07-02 08:17 | DS ---
REASON FOR ADMISSION: This is a 57-year-old -[place] male with history of multiple medical problems who was admitted to transitional care unit after right hip prosthetic revision surgery. COURSE OF HOSPITALIZATION: The patient was admitted to transitional care unit and he was started on both physical therapy and occupational therapy. The patient was being followed by Orthopedic Surgery while he was in the floor. The patient's stay was complicated with decreased oral intake and elevation of BUN and creatinine. The patient was started on IV fluid and hydrochlorothiazide was stopped and kidney function was normalized. The patient was discharged home in a stable condition to continue current medications including Lovenox for DVT prophylaxis. FINAL DIAGNOSES: 1. Right hip prosthesis revision surgery. 2. Type 2 diabetes mellitus. 3. Hypertension. 4. Status post fall. Cox Monett MD Thuan
[2018-07-02] MEDS ORDERED: Enoxaparin 40 mg Syringe SC SCH (09:00)
== END 2018-07-01 19:20 | disposition home or self-care (01) | DRG 256 ==
LOC: H.TCU 22:14
PROVIDERS: ADMIT Internal Medicine; ATTEND Internal Medicine
PROC: F07Z9FZ Gait Training/Functional Ambulation Treatment using Assistive, Adaptive, Supportive or Protective Equipment (ICD-10-PCS; principal; 2018-06-23)
PROC: F08Z4FZ Home Management Treatment using Assistive, Adaptive, Supportive or Protective Equipment (ICD-10-PCS; 2018-06-23)
PROC: F07L6FZ Therapeutic Exercise Treatment of Musculoskeletal System - Lower Back / Lower Extremity using Assistive, Adaptive, Supportive or Protective Equipment (ICD-10-PCS; 2018-06-23)
DX: Z47.1 Aftercare following joint replacement surgery (principal); E11.65 Type 2 diabetes mellitus with hyperglycemia; Z96.641 Presence of right artificial hip joint; I10 Essential (primary) hypertension; E55.9 Vitamin D deficiency, unspecified; E78.00 Pure hypercholesterolemia, unspecified; R94.4 Abnormal results of kidney function studies; F17.210 Nicotine dependence, cigarettes, uncomplicated; Z91.81 History of falling